=== PATIENT | female | born 1970 | race Caucasian/White ===

== ENCOUNTER → 2019-02-06 | Outpatient (CLI) | payer OTHER, MEDICARE ==
--- NOTE | 2019-02-06 09:36 | XR ---
EXAMINATION TYPE: XR KUB DATE OF EXAM: 02/06/2019 COMPARISON: NONE HISTORY: Ultrasound 02/06/2019 TECHNIQUE: One view abdominal series FINDINGS: The osseous structures are intact. The bowel gas pattern is nonspecific. There is a 3 mm lower pole left renal calculus. Spina bifida occulta noted. Calcifications in the pelvis are too small to charac terize. Sclerosis involving the SI joint greater on the right can be associated with sacroiliitis cor relate clinically. IMPRESSION: 1. Lower pole 3 mm left renal calculus.
--- NOTE | 2019-02-06 11:37 | US ---
EXAMINATION TYPE: US kidneys/renal and bladder DATE OF EXAM: 02/06/2019 COMPARISON: NONE CLINICAL HISTORY: Kidney Stones N20.0. Pt states h/o kidney stones, left calculus surgically removed May 2018 EXAM MEASUREMENTS: Right Kidney: 12.6 x 4.1 x 4.0 cm Left Kidney: 11.4 x 4.9 x 4.8 cm Post Void Residual Volume: 88 mL Right Kidney: Dilated renal pelvis, still visualized on post void Left Kidney: Renal calculus lower pole= 0.8 cm, dilated renal pelvis, still visualized on post void Bladder: wnl Bilateral Jets seen: Yes Normal Post Void Residual: No IMPRESSION: There is mild bilateral hydronephrosis with a 8 mm lower pole left renal calculus
== END | disposition home or self-care (01) ==
LOC: RADUSWWP 08:24
PROVIDERS: ATTEND Urology
DX: N13.2 Hydronephrosis with renal and ureteral calculous obstruction (principal)
CPT/HCPCS: 74018; 76770

== ENCOUNTER → 2019-03-17 | Outpatient (CLI) | payer OTHER, MEDICARE ==
--- NOTE | 2019-03-18 11:08 | MM ---
Reason for exam: screening (asymptomatic). Last mammogram was performed 3 years and 2 months ago. History: Patient is nulliparous. Physical Findings: A clinical breast exam by your physician is recommended on an annual basis and results should be correlated with mammographic findings. MG Screening Mammo w CAD Bilateral CC and MLO view(s) were taken. Prior study comparison: January 10, 2016, mammogram, performed at [facility]. The breast tissue is extremely dense which could obscure a lesion on mammography. Diffuse bilateral punctate calcifications redemonstrated. No significant changes when compared with prior studies. ASSESSMENT: Benign, BI-RAD 2 RECOMMENDATION: Routine screening mammogram of both breasts in 1 year. Patient should continue monthly self breast exams. A negative report should not preclude additional follow up of suspicious palpable abnormalities.
== END | disposition home or self-care (01) ==
LOC: RADMAMWWP 13:44
PROVIDERS: ATTEND Family Medicine
DX: Z12.31 Encounter for screening mammogram for malignant neoplasm of breast (principal)
CPT/HCPCS: 77067

== ENCOUNTER → 2019-03-28 | Outpatient (CLI) | payer OTHER, MEDICARE ==
--- NOTE | 2019-03-28 09:51 | US ---
EXAMINATION TYPE: US pelvic complete DATE OF EXAM: 03/28/2019 COMPARISON: NONE CLINICAL HISTORY: R10.2 PELVIC PAIN. right pelvic pain with physician's palpation; G0; right endometr ioma removed TECHNIQUE: Transabdominal (TA). Transabdominal sonographic images of the pelvis were acquired. Date of LMP: 2 weeks ago EXAM MEASUREMENTS: Uterus: 8.8 x 5.5 x 3.4 cm Endometrial Stripe: 1.0 cm Right Ovary: 3.8 x 2.5 x 2.2 cm Left Ovary: 4.9 x 3.4 x 2.3 cm 1. Uterus: Anteverted 2. Endometrium: thickness is wnl for approximately day 14 LMP 3. Right Ovary: wnl, small follicles 4. Left Ovary: complex lesion with internal echoes that are homogeneous measuring 3.2 x 2.8 x 2.4cm Spectral, color and waveform Doppler imaging shows good arterial and venous flow within the ovaries ; there is no evidence for ovarian torsion. 5. Bilateral Adnexa: wnl 6. Posterior cul-de-sac: wnl IMPRESSION: 3.2 cm left ovarian lesion appears as a hemorrhagic cyst or endometrioma. Follow-up pelvi c ultrasound in 3 months could assess for resolution. If persistent at follow-up exam endometrioma wo uld be favored.
== END ==
LOC: RADUSWWP 06:46
PROVIDERS: ATTEND Obstetrics & Gynecology
DX: N83.8 Other noninflammatory disorders of ovary, fallopian tube and broad ligament (principal)
CPT/HCPCS: 76856

== ENCOUNTER → 2019-05-19 | Outpatient (CLI) | payer OTHER, MEDICARE ==
--- NOTE | 2019-05-19 07:30 | US ---
EXAMINATION TYPE: US pelvic complete DATE OF EXAM: 05/19/2019 COMPARISON: US 03/28/2019 CLINICAL HISTORY: N83.202 Ovarian cyst. Intermittent left pelvic pain x 1 month, follow up ovarian cy st, history of endometriosis - endometrioma removed, 2, 2. TECHNIQUE: Transabdominal sonographic images of the pelvis were acquired. Date of LMP: 2 weeks ago EXAM MEASUREMENTS: Uterus: 9.6 x 3.7 x 5.5 cm Endometrial Stripe: 0.7 cm Right Ovary: 2.9 x 1.4 x 2.0 cm Left Ovary: 3.9 x 2.9 x 3.4 cm 1. Uterus: anteverted 2. Endometrium: appears wnl 3. Right Ovary: wnl 4. Left Ovary: 3.0 x 1.8 x 2.4cm complex lesion with internal echoes. This measured up to 3.2 cm on the prior exam of 03/28/2019 5. Bilateral Adnexa: wnl 6. Posterior cul-de-sac: wnl IMPRESSION: Similar-appearing approximately 3.0 cm complex left ovarian lesion. Given its persistence and comparison to the prior of 03/28/2019 this is favored to represent an endometrioma rather than he morrhagic cyst.
== END | disposition home or self-care (01) ==
LOC: RADUSWWP 06:50
PROVIDERS: ATTEND Obstetrics & Gynecology
DX: N83.292 Other ovarian cyst, left side (principal)
CPT/HCPCS: 76856

== ENCOUNTER → 2019-09-02 | Outpatient (CLI) | payer OTHER, MEDICARE ==
--- NOTE | 2019-09-02 10:23 | XR ---
EXAMINATION TYPE: XR KUB DATE OF EXAM: 09/02/2019 COMPARISON: 02/06/2019 INDICATION: Kidney stones TECHNIQUE: Single view abdomen FINDINGS: There is a normal bowel gas pattern. Psoas margins are normal. No organomegaly is present. There is a 0.6 cm calcification at the inferior pole left kidney. There is a 1.1 cm calcification in the proximal left ureter region adjacent to the left kidney. This is new. There is a 0.3 cm calcification above the iliac spine regions within the pelvis. However, this was pr esent previously suggesting this may be a phlebolith rather than a distal ureteral stone. IMPRESSION: 1. There may be a new 1.1 cm proximal left ureteral stone. 2. Stable inferior pole left renal stone.
== END | disposition home or self-care (01) ==
LOC: RADXRMAIN 09:15
PROVIDERS: ATTEND Urology
DX: N20.0 Calculus of kidney (principal)
CPT/HCPCS: 74018

== ENCOUNTER → 2019-10-22 | Outpatient (CLI) | payer OTHER, MEDICARE ==
--- NOTE | 2019-10-22 13:01 | XR ---
EXAMINATION TYPE: XR abdomen 1V DATE OF EXAM: 10/22/2019 COMPARISON: 09/02/2019 HISTORY: Pain TECHNIQUE: One view abdominal series FINDINGS: Left kidney: There are numerous calcifications involving the lower pole the left kidney. Approximate number is 8. Largest diameter is 3 mm. There is a calcification in the region of the proximal left ureter measuring 3.5 mm. Right kidney: No calcifications. Pelvic calcifications: Stable Changes of sacroiliitis on the right are noted. There is a curvature of the spine with spina bifida o cculta lumbosacral junction. Bowel gas pattern nonspecific. IMPRESSION: 1. Multiple lower pole left renal calculi with suspicion for a proximal ureteral left calculus smalle r in size relative to the previous exam. Currently measures 3.5 mm in diameter and appears to measure approximately 5 mm in diameter. 2. The pelvic calcifications are stable in appearance compared to the prior exam are felt most likely related to vascular phleboliths.
== END | disposition home or self-care (01) ==
LOC: RADXRMAIN 11:36
PROVIDERS: ATTEND Urology
DX: N20.0 Calculus of kidney (principal)
CPT/HCPCS: 74018

== ENCOUNTER → 2019-11-03 | Outpatient (CLI) | payer OTHER, MEDICARE ==
--- NOTE | 2019-11-03 22:17 | CT ---
EXAMINATION TYPE: CT urogram wo/w con DATE OF EXAM: 11/03/2019 HISTORY: difficulty urinating CT DLP: 823.7mGycm Automated Exposure Control for Dose Reduction was Utilized. CONTRAST: CT scan of the abdomen and pelvis is performed without oral and without and with IV Contrast, patient injected with 100 mL of Isovue 300. Urogram protocol with 3-D reconstruction images created on an in dependent workstation and reviewed. COMPARISON: KUB x-ray September 02, 2019. FINDINGS: KUB: Noncontrast images show 2 mm nonobstructing calculus midpole of the right kidney coronal image 7 1 series 9 and additional 2 mm calculus lower Pole level coronal image 61. Left kidney shows approxim ately 8-10 scattered calculi measuring up to 4 mm along with obstructing 6 mm proximal left ureter ca lculus coronal image 56. There is symmetric cortical medullary uptake and excretion from both kidneys with [id number] left-sided hydronephrosis without delayed excretion. No right-sided hydronep hrosis. No intraluminal calculi in the bladder. LUNG BASES: No significant abnormality is appreciated. LIVER/GB: Somewhat contracted gallbladder. PANCREAS: No significant abnormality is seen. SPLEEN: No significant abnormality is seen. ADRENALS: No significant abnormality is seen. KIDNEYS: No significant abnormality is seen. BOWEL: No significant abnormality is seen. UTERUS/ADNEXA: Anteverted uterus projects to right of midline. Probable thin-walled cysts left ovary axial image 63 series 7. LYMPH NODES: No greater than 1cm abdominal or pelvic lymph nodes are appreciated. OSSEOUS STRUCTURES: Slight scoliotic curvature mild to moderate disc space narrowing lower lumbar lev els. Facet arthropathy lower lumbar levels. OTHER: No significant additional abnormality is seen. IMPRESSION: Bilateral nonobstructing nephrolithiasis with obstructing 6 mm calculus proximal left ure ter causing moderate to severe left-sided hydronephrosis but not delayed excretion.
== END | disposition home or self-care (01) ==
LOC: RADCTMAIN 18:14
PROVIDERS: ATTEND Urology
DX: N20.2 Calculus of kidney with calculus of ureter (principal)
CPT/HCPCS: 74178; 74400; Q9967

== ENCOUNTER → 2019-12-16 | Outpatient (CLI) | payer OTHER, MEDICARE ==
--- NOTE | 2019-12-16 12:43 | XR ---
EXAMINATION TYPE: XR abdomen 1V DATE OF EXAM: 12/16/2019 11:12 AM CLINICAL HISTORY: Kidney stone. History of percutaneous nephrostomy, lithotripsy, retrograde cystosc opy. TECHNIQUE: Supine images of the abdomen and pelvis were obtained COMPARISON: CT urogram 11/03/2019. KUB 10/22/2019. FINDINGS: The calcification which was previously seen overlying the level of the L3 left transverse p rocess over the expected proximal ureter is no longer seen on current exam. Calcifications overlying the renal shadows bilaterally, with question bleed decreased on burden of the left lower pole. Nonspe cific bowel gas pattern. No organomegaly. Degenerative sclerotic changes of the right sacroiliac join t. IMPRESSION: The previously demonstrated stone overlying the proximal left ureter is not seen on current exam. The re are bilateral renal calculi, with possibly decreased on burden of the left lower pole.
== END | disposition home or self-care (01) ==
LOC: RADXRMAIN 10:52
PROVIDERS: ATTEND Urology
DX: N20.0 Calculus of kidney (principal)
CPT/HCPCS: 74018

== ENCOUNTER → 2020-01-16 | Outpatient (CLI) | payer OTHER, MEDICARE ==
[2020-01-16 14:04] LABS: Basophils % (A) 0 %; Eosinophils % (A) 1 %; HCT 38.7 % (34.0-46.0); HGB 12.1 gm/dL (11.4-16.0); Lymphocytes # (A) 0.2 k/uL (1.0-4.8); Lymphocytes % (A) 4 %; MCH 28.6 pg (25.0-35.0); MCHC 31.2 g/dL (31.0-37.0); MCV 91.7 fL (80.0-100.0); Mean Platelet Volume 7.2; Monocytes # (A) 0.2 k/uL (0-1.0); Monocytes % (A) 6 %; Neutrophils # (A) 3.4 k/uL (1.3-7.7); Neutrophils % (A) 88 %; Platelet Count 248 k/uL (150-450); RBC 4.22 m/uL (3.80-5.40); RDW 13.2 % (11.5-15.5); WBC 3.8 k/uL (3.8-10.6)
[2020-01-16 19:49] LABS: ALT 23 U/L (8-44); AST 20 U/L (13-35); Albumin/Globulin Ratio 3.14 (1.60-3.17); Alkaline Phosphatase 72 U/L (41-126); Bilirubin, Conjugated <0.20 mg/dL (0.20-0.40); Globulin 1.4 g/dL (1.6-3.3); Total Bilirubin 0.5 mg/dL (0.2-1.2); Total Protein 5.8 g/dL (6.2-8.2)
== END | disposition home or self-care (01) ==
LOC: LABWHC1 12:12
PROVIDERS: ATTEND Psychiatry & Neurology Neurology
DX: G35 Multiple sclerosis (principal)
CPT/HCPCS: 36415; 80076; 85025

== ENCOUNTER → 2020-02-16 | Outpatient (CLI) | payer OTHER, MEDICARE ==
[2020-02-16 17:50] LABS: African American GFR (CKD) 117.9 (60.0-200.0); Calcium 9.6 mg/dL (8.7-10.3); Carbon Dioxide 25.3 mmol/L (21.6-31.8); Non-African American GFR(CKD) 101.7 (60.0-200.0); Phosphorus 3.9 mg/dL (2.4-5.1); Uric Acid 3.4 mg/dL (2.9-7.7)
== END | disposition home or self-care (01) ==
LOC: LABWHC1 08:40
PROVIDERS: ATTEND Urology
DX: N20.0 Calculus of kidney (principal)
CPT/HCPCS: 36415; 82310; 82374; 82435; 82565; 83970; 84100; 84550

== ENCOUNTER → 2020-02-18 | Outpatient (CLI) | payer OTHER, MEDICARE ==
[2020-02-18 20:28] LABS: Calcium 9.4 mg/dL (8.7-10.3); Carbon Dioxide 25.6 mmol/L (21.6-31.8); Phosphorus 3.6 mg/dL (2.4-5.1); Uric Acid 2.6 mg/dL (2.9-7.7)
[2020-02-19 04:39] LABS: Calcium 24 Hour,Urine 252.5 mg/24Hr (100.0-250.0)
[2020-02-19 06:31] LABS: Uric Acid 24 Hour,Urine 0.56 g/24Hr (0.25-0.75)
[2020-02-19 07:03] LABS: Creatinine 24 Hour,Urine 1.09 g/24Hr (0.80-1.80)
== END | disposition home or self-care (01) ==
LOC: LABWHC1 13:17
PROVIDERS: ATTEND Urology
DX: N20.2 Calculus of kidney with calculus of ureter (principal)
CPT/HCPCS: 36415; 81050; 82310; 82340; 82374; 82435; 82565; 82570; 83970; 84100; 84550; 84560

== ENCOUNTER → 2020-03-30 | Outpatient (CLI) | payer OTHER, MEDICARE ==
--- NOTE | 2020-03-30 16:38 | BD ---
EXAMINATION TYPE: Axial Bone Density DATE OF EXAM: 03/30/2020 COMPARISON: NONE CLINICAL HISTORY: Height: 5 FT 2 1/4 IN Weight: 128 FRAX RISK QUESTIONS: Alcohol (3 or more units per day): NO Family History (Parent hip fracture): NO Glucocorticoids (More than 3mos): NO (Ex: prednisone, prednisolone, methylprednisolone, dexamethasone, and hydrocortisone). History of Fracture in Adulthood: NO Secondary Osteoporosis: 1. Type 1 Diabetes: NO 2. Hyperthyroidism: NO 3. Menopause before 45: NO 4. Malnutrition: NO 5. Chronic liver disease: NO Rheumatoid Arthritis: NO Current Tobacco Use: NO RISK FACTORS HISTORY OF: Family History of Osteoporosis: YES Active: YES Diet low in dairy products/other sources of calcium: NO Postmenopausal woman: NO If Premenopausal, do you have irregular periods: NO Take estrogen and/or progesterone medications: NO Lost more than 2 inches in height since high school: NO Frequent falls: YES Poor Health: PT HAS MS MEDICATIONS: Additional Medications: GILENYA, LOSARTIN, HYDROCHLORTHIAZIDE, VITAMINS Additional History: PT HAS MS UNSTEADY USES A CANE EXAM MEASUREMENTS: Bone mineral densitometry was performed using the [employer] System. Bone mineral density as measured about the Lumbar spine is: ----- L1-L4(G/cm2): 1.154 T Score Values are as follows: ----- L2: -0.2 ----- L3: 0.3 ----- L4: -0.7 ----- L1-L4: -0.2 BASELINE Bone mineral density about the R hip (g/cm2): 0.689 Bone mineral density about the L hip (g/cm2): 0.669 T Score values are as follows: -----R Neck: -2.5 -----L Neck: -2.7 -----R Total: -1.1 -----L Total: -1.6 BASELINE IMPRESSION: Osteoporosis (T Score less than -2.5). There is increased fracture risk and therapy is usually indicated based on age. Re-Screen 1-2 years. NOTE: T-SCORE=SD OF THE YOUNG ADULT MEAN.
--- NOTE | 2020-03-31 10:23 | MM ---
Reason for exam: screening (asymptomatic). Last mammogram was performed 1 year ago. History: Patient is nulliparous. Physical Findings: A clinical breast exam by your physician is recommended on an annual basis and results should be correlated with mammographic findings. MG Screening Mammo w CAD Bilateral CC and MLO view(s) were taken. Prior study comparison: March 17, 2019, bilateral MG screening mammo w CAD. January 10, 2016, mammogram, performed at [facility]. The breast tissue is heterogeneously dense. This may lower the sensitivity of mammography. No significant changes when compared with prior studies. ASSESSMENT: Benign, BI-RAD 2 RECOMMENDATION: Routine screening mammogram of both breasts in 1 year.
== END | disposition home or self-care (01) ==
LOC: RADMAMWWP 07:36
PROVIDERS: ATTEND Obstetrics & Gynecology
DX: Z12.31 Encounter for screening mammogram for malignant neoplasm of breast (principal); M81.0 Age-related osteoporosis without current pathological fracture
CPT/HCPCS: 77067; 77080

== ENCOUNTER → 2020-03-30 | Outpatient (CLI) | payer OTHER, MEDICARE ==
--- NOTE | 2020-03-30 12:45 | US ---
EXAMINATION TYPE: US pelvis complete transvag DATE OF EXAM: 03/30/2020 COMPARISON: 05/19/2019 CLINICAL HISTORY: R68.89 RT MASS, ABN PELVIC EXAM. hx right ovarian lesion. TECHNIQUE: Transvaginal (TV) and Transabdominal (TA) . Transabdominal sonographic images of the pel vis were acquired. Transvaginal sonographic images were medically necessary to better assess the fol lowing anatomy: Ovaries, Uterus Date of LMP: 03/16/2020, EXAM MEASUREMENTS: Uterus: 8.7 x 4.8 x 3.5 cm Endometrial Stripe: 1.0 cm Right ovary measures 3.2 x 2.2 x 1.9 cm. Left ovary measures 2.9 x 3.0 x 1.9 cm. 1. Uterus: Anteverted Hypoechoic lesion in left uterus = 1.6 x 1.3 x 1.5 cm 2. Endometrium: wnl 3. Right Ovary: hypoechoic lesion = 1.6 x 1.6 x 1.6 cm 4. Left Ovary: Hypoechoic lesion with echogenic foci within = 3.0 x 2.6 x 1.8 cm. This appears more homogenous than the comparison study. 5. Bilateral Adnexa: wnl 6. Posterior cul-de-sac: no free fluid Cervix= wnl Vaginal cuff- echogenic lesion - 1.0 x 0.9 x 0.7 cm IMPRESSION: 1. Hypoechoic collection right ovary with irregular margins. A collapsing cyst may be present. Follow -up is recommended. 2. Hypoechoic lesion within the left ovary may be a hemorrhagic cyst. Follow-up is recommended. 3. Ill-defined isoechoic lesion within the fundus of uterus. Correlate with the menstrual cycle. Unde rlying thickening or abnormal structure may be present. Correlate with laboratory and beta hCG result s. MRI may be useful for additional evaluation.
== END | disposition home or self-care (01) ==
LOC: RADUSWWP 07:34
PROVIDERS: ATTEND Obstetrics & Gynecology
DX: N83.8 Other noninflammatory disorders of ovary, fallopian tube and broad ligament (principal)
CPT/HCPCS: 76830; 76856

== ENCOUNTER → 2020-05-11 | Outpatient (CLI) | payer OTHER, MEDICARE ==
--- NOTE | 2020-05-11 10:00 | US ---
EXAMINATION TYPE: US pelvic complete DATE OF EXAM: 05/11/2020 COMPARISON: Pelvic ultrasound 03/30/2020 CLINICAL HISTORY: N83.0 Ovarian Cyst. Patient has MS, h/o endometriosis, know ovarian cysts, patient states she has had cysts removed from ovaries before, known fibroid, G0 TECHNIQUE: TA, patient did not want TV today. Transabdominal sonographic images of the pelvis were acquired. Date of LMP: 04/29/2020 EXAM MEASUREMENTS: Uterus: 9.5 x 5.1 x 3.3 cm Endometrial Stripe: 0.9 cm Right Ovary: not seen Left Ovary: 3.3 x 3.5 x 2.4cm 1. Uterus: Anteverted 1.7 x 1.4 x 1.6cm fundal fibroid 2. Endometrium: wnl 3. Right Ovary: not seen, patient could not hold bladder any more, quick adnexal imagining done. 4. Left Ovary: 2.7 x 2.4 x 2.0cm cyst seen 5. Bilateral Adnexa: wnl 6. Posterior cul-de-sac: wnl IMPRESSION: Limitations to the exam. Left ovarian cyst persists.
== END | disposition home or self-care (01) ==
LOC: RADUSWWP 07:00
PROVIDERS: ATTEND Obstetrics & Gynecology
DX: N83.202 Unspecified ovarian cyst, left side (principal)
CPT/HCPCS: 76856

== ENCOUNTER → 2020-07-26 | Outpatient (CLI) | payer OTHER, MEDICARE ==
--- NOTE | 2020-07-26 12:25 | US ---
EXAMINATION TYPE: US renals and bladder DATE OF EXAM: 07/26/2020 COMPARISON: CT 11/03/2019 CLINICAL HISTORY: 49-year-old female N20.0 Kidney Stone. Bilateral renal stones/surgery per patient; patient has MS and has decreased feeling of bladder urgency to void TECHNIQUE: Multiple sonographic images of the kidneys and bladder are obtained. FINDINGS: EXAM MEASUREMENTS: Right Kidney: 12.3 x 5.7 x 4.3 cm Left Kidney: 12.2 x 5.7 x 6.0 cm Post Void Residual Volume: 49.9 mL Right Kidney: small calcifications noted in superior pole measuring up to 4 mm; small hyperechoic cor tical focus noted mid lower/lateral cortex could represent some fat within a cortical defect or other abnormality. No hydronephrosis. Left Kidney: multiple calcifications seen with largest shadowing stone in the lower pole measuring 1. 1 x 0.9 x 0.5cm. No hydronephrosis. Bladder: wnl Bilateral Jets seen: yes Normal Post Void Residual: Increased (normal <50mL) IMPRESSION: 1. Bilateral nephrolithiasis. No hydronephrosis. 2. A 4 mm hyperechoic cortical lesion of the right kidney could represent fat interposed within a kika ctional defect. Small AML or other lesion are not excluded at this time. Six-month follow-up ultrasou nd recommended to reassess. 3. Increased postvoid bladder volume of 50 mL. Findings suggest borderline urinary retention.
== END | disposition home or self-care (01) ==
LOC: RADUSWWP 10:21
PROVIDERS: ATTEND Urology
DX: N20.0 Calculus of kidney (principal)
CPT/HCPCS: 76770

== ENCOUNTER → 2020-09-03 | Outpatient (CLI) | payer OTHER, MEDICARE ==
[2020-09-03 11:30] LABS: Basophils # (A) 0.01 X 10*3/uL (0.00-0.10); Basophils % (A) 0.3 %; Eosinophils # (A) 0.05 X 10*3/uL (0.04-0.35); Eosinophils % (A) 1.7 %; HCT 38.1 % (37.2-46.3); HGB 12.2 g/dL (12.0-15.0); Lymphocytes # (A) 0.12 X 10*3/uL (0.90-5.00); Lymphocytes % (A) 4.1 %; MCH 29.8 pg (27.0-32.0); MCV 92.9 fL (80.0-97.0); Mean Platelet Volume 10.6 fL (9.5-12.2); Monocytes # (A) 0.32 X 10*3/uL (0.20-1.00); Monocytes % (A) 10.9 %; Neutrophils # (A) 2.43 X 10*3/uL (1.80-7.70); Neutrophils % (A) 82.7 %; Platelet Count 250 X 10*3/uL (140-440); RDW 13.9 % (11.5-14.5); WBC 2.94 X 10*3/uL (4.50-10.00)
[2020-09-03 12:20] LABS: ALT 18 U/L (8-44); AST 16 U/L (13-35); Alkaline Phosphatase 76 U/L (41-126); Bilirubin, Conjugated <0.20 mg/dL (0.20-0.40); Carbon Dioxide 30.3 mmol/L (21.6-31.8); Chloride 103 mmol/L (96-109); Globulin 1.8 g/dL (1.6-3.3); Phosphorus 3.7 mg/dL (2.4-5.1); Potassium 4.1 mmol/L (3.5-5.5); Sodium 140 mmol/L (135-145); Total Bilirubin 0.4 mg/dL (0.3-1.2); Total Protein 6.3 g/dL (6.2-8.2)
[2020-09-04 09:22] LABS: T4/T8 Ratio (CD4:CD8) 2.4 (1.0-3.7)
== END | disposition home or self-care (01) ==
LOC: LABWHC1 07:01
PROVIDERS: ATTEND Psychiatry & Neurology Neurology
DX: G35 Multiple sclerosis (principal)
CPT/HCPCS: 36415; 80051; 80076; 82525; 82652; 84100; 84630; 85025; 86355; 86357; 86359; 86360

== ENCOUNTER → 2020-11-16 | Outpatient (CLI) | payer OTHER, MEDICARE ==
--- NOTE | 2020-11-16 13:02 | US ---
EXAMINATION TYPE: US kidneys/renal and bladder DATE OF EXAM: 11/16/2020 COMPARISON: US 07/26/2020 CLINICAL HISTORY: N20.0 Kidney Stone. EXAM MEASUREMENTS: Right Kidney: 12.3 x 4.2 x 4.8 cm Left Kidney: 10.4 x 4.4 x 4.8 cm Right Kidney: Mild amount of hydronephrosis. Echogenic foci mid pole measuring 0.4 cm. Hyperechoic ar ea mid pole measuring 0.5 cm. Junctional defect vs other Left Kidney: Mild amount of hydronephrosis. Two large echogenic foci visualized, first lower pole kartik suring 2.4 cm and second upper pole measuring 1.1 cm Bladder: wnl Bilateral Jets seen: yes The urinary bladder is anechoic. Bilateral ureteral jets are seen. IMPRESSION: 1. Bilateral hydronephrosis. 2. Bilateral nephrolithiasis.
== END | disposition home or self-care (01) ==
LOC: RADUSWWP 11:35
PROVIDERS: ATTEND Urology
DX: N13.2 Hydronephrosis with renal and ureteral calculous obstruction (principal)
CPT/HCPCS: 76770

== ENCOUNTER → 2020-12-03 | Outpatient (CLI) | payer OTHER, MEDICARE ==
--- NOTE | 2020-12-03 23:21 | CT ---
EXAMINATION TYPE: CT urogram wo/w con DATE OF EXAM: 12/03/2020 HISTORY: Lt sided renal stone CT DLP: 734.1mGycm Automated Exposure Control for Dose Reduction was Utilized. CONTRAST: CT scan of the abdomen and pelvis is performed without and with IV Contrast, patient injected with 10 0 mL of Isovue 300. COMPARISON: 11/03/2019 FINDINGS: LUNG BASES: No significant abnormality is appreciated. INCLUDED CARDIAC STRUCTURES: No cardiomegaly or pericardial effusion in the included cardiac structur es. LIVER: No significant abnormality is appreciated. GALLBLADDER : No significant abnormality is appreciated. BILIARY TREE: No abnormal biliary tree dilation. PANCREAS: No significant abnormality is seen. SPLEEN: 9 mm hypoattenuating lesion in the posterior aspect of the inferior spleen previously measure d 6.5 mm, could represent a cyst or hemangioma. ADRENALS: No significant abnormality is seen. KIDNEYS AND URETERS: There are tiny 1 to 2 mm calculi in the right kidney without hydronephrosis. Mul tiple calculi are seen in the left renal collecting system the largest in the lower pole measures up to 1.5 cm. A smaller left upper pole calculus measures 5 mm. There is a low attenuating lesion in the left kidney upper pole which fills with contrast and may represent focal dilatation of the left kidn ey upper pole versus a calyceal diverticulum, lack of delayed imaging differentiation difficult. Ther e is mild dilatation of the left renal collecting system. There is mild thickening of the left pelvic and proximal left ureteral urothelium. This thickening is new compared to prior study. There is no u rothelial thickening on the right. There is an 8 mm low attenuating lesion without enhancement in the left kidney middle pole series 14 image 27, too small to visualize likely on the basis of cyst. Ther e is a 2 mm low attenuating nonenhancing lesion in the right kidney middle pole series 14 image 32 to o small to visualize likely on the basis of cyst. URINARY BLADDER: There is a 1.0 x 0.6 cm filling defect in the posterior urinary bladder wall seen on the delayed contrast images series 14 image 67 and was not seen on prior study. ESOPHAGUS: No significant abnormality is seen. STOMACH: No significant abnormality is seen. SMALL BOWEL: No significant abnormality is seen. LARGE BOWEL: There is an extremely hyperattenuating lesion in the cecal valve which was not seen on p rior study this could represent a foreign body such as an ingested pill. There is no bowel obstructio n or diverticulosis. APPENDIX: Not definitely identified. No secondary evidence of acute appendicitis. HERNIAS: None UTERUS/ADNEXA: There is a small amount of fluid in the endometrial cavity. There is slight irregulari ty in the anterior uterine fundal wall which may represent a leiomyomata. There is slight thickening to the superior aspect of the cervix which is not well-defined. There is a calcified lesion in the po sterior vaginal wall which was seen on prior study, likely benign. There is a 3.5 cm left ovarian cys t. PERITONEUM/MESENTRY: No pneumoperitoneum or ascites. LYMPH NODES: No enlarged retroperitoneal or pelvic lymph nodes are appreciated. MAJOR VASCULAR STRUCTURES: Nonaneurysmal aorta. Inferior vena cava are normal in course and caliber. Patent major proximal aortic branches. OSSEOUS STRUCTURES: Mild scoliosis. Moderate narrowing at L5-S1 with disc herniation at L4-5 and L5-S 1. Mild facet joint arthropathy in the lower lumbar spine. Bilateral sacroiliac joint sclerotic spivey es right greater than left. Mild endplate degenerative changes in the 11 vertebral body. Ventral bony spur at T11-12 and L1-2. No significant soft tissue abnormalities. IMPRESSION: 1. LEFT RENAL CALCULI MEASURING UP TO 1.5 CM INCREASED IN SIZE AND NUMBER COMPARED TO PRIOR STUDY WIT H MILD LEFT HYDRONEPHROSIS. TINY RIGHT OBSTRUCTING NEPHROLITHIASIS. 2. THICKENING OF THE LEFT RENAL PELVIS AND PROXIMAL UROTHELIUM COULD REPRESENT ACUTE OR CHRONIC INFEC TION OR INFLAMMATION SEQUEL, MALIGNANCY CANNOT BE ENTIRELY EXCLUDED. 3. FILLING DEFECT IN THE POSTERIOR URINARY BLADDER WALL, CORRELATION WITH DIRECT VISUALIZATION SHOULD BE CONSIDERED TO RULE OUT UNDERLYING MALIGNANCY. 4. SMALL AMOUNT OF FLUID IN THE ENDOMETRIAL CAVITY, SMALL LEIOMYOMATA SUSPECTED, MILD THICKENING TO T HE SUPERIOR POSTERIOR ASPECT OF THE CERVIX, 3.5 CM LEFT OVARIAN CYST, FURTHER EVALUATION WITH PELVIC ULTRASOUND RECOMMENDED
== END | disposition home or self-care (01) ==
LOC: RADCTMAIN 10:23
PROVIDERS: ATTEND Urology
DX: N20.0 Calculus of kidney (principal)
CPT/HCPCS: 74178; 74400; Q9967

== ENCOUNTER → 2021-04-07 | Outpatient (CLI) | payer OTHER, MEDICARE | END | disposition home or self-care (01) | LOC: LABWHC1 07:20 | PROVIDERS: ATTEND Urology | DX: N20.0 Calculus of kidney (principal) | CPT/HCPCS: 87086 ==

== ENCOUNTER → 2021-04-14 | Outpatient (CLI) | payer OTHER, MEDICARE | END | disposition home or self-care (01) | LOC: LABWHC1 07:01 | PROVIDERS: ATTEND Urology | DX: Z01.812 Encounter for preprocedural laboratory examination (principal); Z20.822 Contact with and (suspected) exposure to COVID-19 | CPT/HCPCS: U0003; C9803; U0005 ==

== ENCOUNTER → 2021-05-23 | Outpatient (CLI) | payer OTHER, MEDICARE | END | disposition home or self-care (01) | LOC: LABWHC1 07:10 | PROVIDERS: ATTEND Urology | DX: Z20.822 Contact with and (suspected) exposure to COVID-19 (principal) | CPT/HCPCS: U0003; C9803 ==

== ENCOUNTER → 2021-06-27 | Outpatient (CLI) | payer OTHER, MEDICARE ==
--- NOTE | 2021-06-27 10:14 | US ---
EXAMINATION TYPE: US kidneys/renal and bladder DATE OF EXAM: 06/27/2021 COMPARISON: NONE CLINICAL HISTORY: N20.0 Kidneystone. Hx of stones EXAM MEASUREMENTS: Right Kidney: 10.9 x 4.0 x 4.8 cm Left Kidney: 9.9 x 3.9 x 4.6 cm Right Kidney: No hydronephrosis or masses see dilated renal pelvis. Left Kidney: No hydronephrosis or masses seen Bladder: wnl Bilateral Jets seen: Yes Cortical medullary differentiation is maintained bilaterally. No nephrolithiasis is seen. No masses are identified. The urinary bladder is anechoic. Bilateral ureteral jets are seen. IMPRESSION: Probable extrarenal pelvis present bilaterally, some interval improvement compared to prior exam
== END | disposition home or self-care (01) ==
LOC: RADUSWWP 09:26
PROVIDERS: ATTEND Urology
DX: N20.0 Calculus of kidney (principal)
CPT/HCPCS: 76770

== ENCOUNTER → 2021-08-29 | Outpatient (CLI) | payer OTHER, MEDICARE ==
[2021-08-29 14:44] LABS: Basophils # (A) 0.01 X 10*3/uL (0.00-0.10); Basophils % (A) 0.3 %; Eosinophils # (A) 0.05 X 10*3/uL (0.04-0.35); Eosinophils % (A) 1.4 %; HCT 38.7 % (37.2-46.3); HGB 12.1 g/dL (12.0-15.0); Immature Grans, Automated 0.3 %; Lymphocytes # (A) 0.14 X 10*3/uL (0.90-5.00); Lymphocytes % (A) 3.8 %; MCH 29.1 pg (27.0-32.0); MCHC 31.3 g/dL (32.0-37.0); Mean Platelet Volume 10.7 fL (9.5-12.2); Monocytes # (A) 0.32 X 10*3/uL (0.20-1.00); Monocytes % (A) 8.8 %; NRBC Per 100 WBC 0 /100 WBCS (0.0-0.0); Neutrophils # (A) 3.11 X 10*3/uL (1.80-7.70); Neutrophils % (A) 85.4 %; Platelet Count 258 X 10*3/uL (140-440); RBC 4.16 X 10*6/uL (4.10-5.20); RDW 14.3 % (11.5-14.5); WBC 3.64 X 10*3/uL (4.50-10.00)
[2021-08-29 14:51] LABS: African American GFR (CKD) 123.2 (60.0-200.0); Albumin 4.4 g/dL (3.8-4.9); Anion Gap 9.8 mmol/L (10.00-18.00); BUN/Creat Ratio 21.33 Ratio (12.00-20.00); Blood Urea Nitrogen 12.8 mg/dL (9.0-27.0); Calcium 9.2 mg/dL (8.7-10.3); Carbon Dioxide 26.2 mmol/L (20.0-27.5); Globulin 2.2 g/dL (1.6-3.3); Non-African American GFR(CKD) 106.3 (60.0-200.0); Total Bilirubin 0.3 mg/dL (0.30-1.20); Total Protein 6.6 g/dL (6.2-8.2)
== END | disposition home or self-care (01) ==
LOC: LABWHC1 08:20
PROVIDERS: ATTEND Psychiatry & Neurology Neurology
DX: G35 Multiple sclerosis (principal); M81.0 Age-related osteoporosis without current pathological fracture
CPT/HCPCS: 36415; 80053; 82652; 85025

== ENCOUNTER → 2021-09-30 | Outpatient (CLI) | payer OTHER, MEDICARE ==
--- NOTE | 2021-10-03 18:53 | MM ---
Reason for Exam: Screening (asymptomatic). Last mammogram was performed 1 year(s) and 6 month(s) ago. Patient History: Menarche at age 13. Patient has no children. Risk Values: Ev 5 year model risk: 1.1%. NCI Lifetime model risk: 9.9%. Prior Study Comparison: 01/10/2016 Screening Mammogram, [facility]. 03/17/2019 Bilateral Screening Mammogram, [facility]. 03/30/2020 Bilateral Screening Mammogram, [facility]. Tissue Density: The breast tissue is heterogeneously dense. This may lower the sensitivity of mammography. Findings: Analyzed By CAD. Diffuse and regional benign bilateral round and punctate microcalcifications are redemonstrated. No significant change from prior exams. Overall Assessment: Benign, BI-RAD 2 Management: Screening Mammogram of both breasts in 1 year. 1. A clinical breast exam by your physician is recommended on an annual basis and results should be correlated with mammographic findings. 2. The patient should continue monthly self breast exams. 3. This exam should not preclude additional follow-up of suspicious palpable abnormalities. Electronically signed and approved by: Harjeet Del Castillo M.D. Radiologist
== END | disposition home or self-care (01) ==
LOC: RADMAMWWP 08:56
PROVIDERS: ATTEND Obstetrics & Gynecology
DX: Z12.31 Encounter for screening mammogram for malignant neoplasm of breast (principal)
CPT/HCPCS: 77067

== ENCOUNTER → 2022-07-05 | Outpatient (CLI) | payer BC, MEDICARE ==
[2022-07-05 23:15] LABS: Erythrocyte Sedimentation Rate 10 mm/Hr (0-30)
[2022-07-05 23:20] LABS: Basophils # (A) 0.02 X 10*3/uL (0.00-0.10); Basophils % (A) 0.5 %; Eosinophils # (A) 0.03 X 10*3/uL (0.04-0.35); Eosinophils % (A) 0.8 %; HCT 39.2 % (37.2-46.3); HGB 12.4 g/dL (12.0-15.0); Immature Grans, Automated 0.3 %; Lymphocytes % (A) 5.2 %; MCH 29.7 pg (27.0-32.0); MCHC 31.6 g/dL (32.0-37.0); Mean Platelet Volume 10.8 fL (9.5-12.2); Monocytes # (A) 0.42 X 10*3/uL (0.20-1.00); Monocytes % (A) 10.8 %; NRBC Per 100 WBC 0 /100 WBCS (0.0-0.0); Neutrophils % (A) 82.4 %; Platelet Count 285 X 10*3/uL (140-440); RBC 4.17 X 10*6/uL (4.10-5.20); RDW 13.6 % (11.5-14.5); WBC 3.88 X 10*3/uL (4.50-10.00)
[2022-07-06 01:14] LABS: Appearance,Urine Cloudy (Clear); Bilirubin,Urine Negative (Negative); Blood,Urine Negative (Negative); Color,Urine Yellow (Yellow); Ketones,Urine Negative (Negative); Nitrite,Urine Positive (Negative); PH, Urine 7.5 (5.0-8.0); Specific Gravity,Urine 1.009 (1.001-1.030); Urobilinogen,Urine 0.2 (0.2,1.0)
[2022-07-06 01:26] LABS: Bacteria,Urine 4+ /HPF (None Seen)
[2022-07-06 01:38] LABS: T4, Free (Free Thyroxine) 1.01 ng/dL (0.800-1.800)
== END | disposition home or self-care (01) ==
LOC: LABWHC1 14:09
PROVIDERS: ATTEND Psychiatry & Neurology Neurology
DX: G35 Multiple sclerosis (principal); R32 Unspecified urinary incontinence; Z79.899 Other long term (current) drug therapy
CPT/HCPCS: 36415; 81001; 82306; 82607; 84207; 84439; 84443; 85025; 85652; 87077; 87086; 87186

== ENCOUNTER → 2022-07-27 | Outpatient (CLI) | payer BC, MEDICARE ==
--- NOTE | 2022-08-03 20:04 | MR ---
EXAMINATION TYPE: MR brain/cspine wo/w DATE OF EXAM: 07/27/2022 1:00 PM CLINICAL INDICATION:Female, 51 years old with history of G35 MULTIPLE SCLEROSIS MS. COMPARISON: Outside imaging MRI 05/03/2016 TECHNIQUE: Multiplanar, multisequence images of the brain and brainstem is performed. Multi planar, multi sequence imaging was performed utilizing: T1-weighted, T2-weighted, and turbo inv ersion recovery imaging of the cervical spine. MR IV Contrast: 6 cc Gadavist FINDINGS: BRAIN: High T2 signal seen within the periventricular and deep white matter is is redemonstrated. Some of th david are perpendicularly orientation to the ventricles. Overall findings have progressed from 2017 wit h some white matter changes which have increased in size compared to prior. Examples include left pos terior frontal lobe plaque measuring 10 mm, previously 8 mm, right frontal lobe plaque measuring 10 m m previously 8 mm and right frontal lobe medially measuring 7 mm, previously 5 mm. Other plaques are stable including a 8 mm plaque in the right posterior frontal lobe near the skull vertex. No abnormal postcontrast enhancement or diffusion restriction identified. Focus of susceptibility weighted blooming artifact in the right wrist are frontal parietal region. There is no extra-axial fluid collection or significant white matter signal abnormality. The ventric ular system and cisternal spaces are normal in size and appearance. The brain volume is age appropri ate. Midline structures demonstrate normal morphology. The craniocervical junction appears within no rmal limits. The dural venous sinuses appear patent. The bone marrow signal is within normal limits. Paranasal sinuses and mastoid air cells: Mild scattered paranasal sinus disease. Visualized orbits: Orbital contents are intact. C-SPINE: Alignment: The cervical vertebral bodies have preserved heights. Alignment is within normal limits gi wiliam patient positioning. Bones: Bone signal is within normal limits. Cord: The spinal cord is unremarkable with regards to their signal intensity and morphology. Discs: Intervertebral disc signal is maintained. C2-C3: No significant disc pathology. The spinal canal is patent. No neural foraminal stenosis. C3-C4: No significant disc pathology. The spinal canal is patent. No neural foraminal stenosis. C4-C5: No significant disc pathology. The spinal canal is patent. No neural foraminal stenosis. C5-C6: No significant disc pathology. The spinal canal is patent. No neural foraminal stenosis. C6-C7: No significant disc pathology. The spinal canal is patent. No neural foraminal stenosis. C7-T1: No significant disc pathology. The spinal canal is patent. No neural foraminal stenosis. Other: None. IMPRESSION: 1. Mild progression of white matter changes compatible with multiple sclerosis when compared to 2017 . No evidence for active demyelination involving the brain or cervical spine. 2. No evidence of intracranial mass, acute/subacute infarct, or abnormal enhancement. 3. No evidence for disc herniation or significant spinal canal stenosis.
== END | disposition home or self-care (01) ==
LOC: RADMRIMAIN 11:23
PROVIDERS: ATTEND Psychiatry & Neurology Neurology
DX: G35 Multiple sclerosis (principal)
CPT/HCPCS: 70553; 72156; A9585

== ENCOUNTER → 2022-08-03 | Outpatient (CLI) | payer BC, MEDICARE ==
--- NOTE | 2022-08-03 16:05 | MR ---
EXAMINATION TYPE: MR thoracic spine wo/w con DATE OF EXAM: 08/03/2022 COMPARISON: None HISTORY: Multiple Sclerosis CONTRAST: Performed utilizing 6ml mL intravenous Gadavist gadolinium contrast. TECHNIQUE: Multiplanar, multiecho imaging on a 3.0 Tanisha magnet is performed through the thoracic spi ne. There is increased signal on T2-weighted sequences within the distal thoracic spine T11-L1. Syrinx sh ould be considered. No cord expansion is evident. No obvious mass is identified. At the T11 level there is a right paracentral disc bulge with moderate anterior thecal sac compressio n. No AP spinal canal stenosis is present. Vertebral body alignment is normal. Vertebral body heights are preserved. Disc heights are preserved. Disc hydration levels are preserved. No spinal canal stenosis is evident. IMPRESSIONS: 1. Distal spinal cord syrinx. Recommend contrast CT for additional evaluation. 2. No suspicious multiple sclerosis plaques.
== END | disposition home or self-care (01) ==
LOC: RADMRIMAIN 11:19
PROVIDERS: ATTEND Psychiatry & Neurology Neurology
DX: G35 Multiple sclerosis (principal); G95.0 Syringomyelia and syringobulbia
CPT/HCPCS: 72157; A9585

== ENCOUNTER → 2022-08-14 | Outpatient (CLI) | payer BC, MEDICARE ==
--- NOTE | 2022-08-14 09:15 | CT ---
EXAMINATION TYPE: CT thoracic spine wo/w con CT DLP: 994.3 mGycm, Automated exposure control for dose reduction was used. DATE OF EXAM: 08/14/2022 8:35 AM COMPARISON: 08/03/2022 MRI CLINICAL INDICATION:Female, 51 years old with history of R93.7 ABN MRI, R93.7 MS, Abn MRI TECHNIQUE: Axial images of the thoracic spine were obtained without contrast. Coronal and sagittal re formats were performed. 3-D reformats of the bones were created on a separate workstation and submitt ed for review. FINDINGS: Scattered multilevel disc degeneration changes are seen throughout the spine with osteophyte formatio n with some scattered areas of endplate sclerosis and early Schmorl's node formation. Disc heights an d disc spaces are grossly maintained is scattered facet joint arthropathy. The neural foramen and spi nal canal patent. Spinal cord syrinx seen on prior MRI is not well appreciated on this CT examination due to CT technique. Partially visualized left nonobstructing renal calculi. IMPRESSION: Distal spinal cord syrinx should be evaluated with MRI with IV contrast to rule out underlying lesion .
== END | disposition home or self-care (01) ==
LOC: RADCTMAIN 07:57
PROVIDERS: ATTEND Psychiatry & Neurology Neurology
DX: G35 Multiple sclerosis (principal); R93.7 Abnormal findings on diagnostic imaging of other parts of musculoskeletal system; G95.0 Syringomyelia and syringobulbia
CPT/HCPCS: 72130; Q9967

== ENCOUNTER → 2022-10-05 | Outpatient (CLI) | payer BC, MEDICARE ==
--- NOTE | 2022-10-05 10:22 | BD ---
EXAMINATION TYPE: Axial Bone Density DATE OF EXAM: 10/05/2022 CLINICAL HISTORY: 51 year old Female. ICD-10 CODE: M81.0AGE-RELATED OSTEOPOROSIS W/O CURRENT Height: 62.5 Weight: 134.9 FRAX RISK QUESTIONS: Alcohol (3 or more units per day): no Family History (Parent hip fracture): no Glucocorticoids (More than 3mos): no (Ex: prednisone, prednisolone, methylprednisolone, dexamethasone, and hydrocortisone). History of Fracture in Adulthood: no Secondary Osteoporosis: 1. Type 1 Diabetes: no 2. Hyperthyroidism: no 3. Menopause before 45: no 4. Malnutrition: no 5. Chronic liver disease: no Rheumatoid Arthritis: no Current Tobacco Use: no RISK FACTORS HISTORY OF: Surgery to Spine/Hip(right/left)/Wrist (right/left): no Family History of Osteoporosis: yes Diet low in dairy products/other sources of calcium: no Postmenopausal woman: no If Premenopausal, do you have irregular periods: yes Lost more than 2 inches in height since high school: no Frequent falls: yes MEDICATIONS: Additional History: use of steroids in the past EXAM MEASUREMENTS: Bone mineral densitometry was performed using the [employer] System. Bone mineral density as measured about the Lumbar spine is: ----- L1-L4(G/cm2): 1.152 T Score Values are as follows: ----- L1: -0.3 ----- L2: -0.5 ----- L3: 0.2 ----- L4: -0.6 ----- L1-L4: -0.2 Z Score Values are as follows: ----- L1: 0.4 ----- L2: 0.2 ----- L3: 0.9 ----- L4: 0.1 ----- L1-L4: 0.4 Bone mineral density has: decreased -0.2 % since study of: 03.30.2020 Bone mineral density about the R hip (g/cm2): 0.851 Bone mineral density about the L hip (g/cm2): 0.821 T Score values are as follows: -----R Neck: -2.4 -----L Neck: -2.3 -----R Total: -1.2 -----L Total: -1.5 Z Score values are as follows: -----R Neck: -1.5 -----L Neck: -1.3 -----R Total: -0.6 -----L Total: -0.9 Bone mineral density has: decreased -0.8 % since study of: 03.30.2020 FRAX%s: The graph provided illustrates a 7.5% chance for a major osteoporotic fx and a 1.5% chance fo r the hips probability for fx in 10 years time. IMPRESSION: Osteopenia (T Score between -2.5 and -1). There is slightly increased risk of fracture and the patient may be considered for treatment. Re-Screen 2-5 years. NOTE: T-SCORE=SD OF THE YOUNG ADULT MEAN.
--- NOTE | 2022-10-06 17:34 | MM ---
Reason for Exam: Screening (asymptomatic). Last screening mammogram was performed 12 month(s) ago. Patient History: Menarche at age 13. Patient has no children. Patient used Hormonal Contraceptives for 2 years. Last menstrual period: 07/20/2022 Risk Values: Ev 5 year model risk: 1.1%. NCI Lifetime model risk: 9.7%. Prior Study Comparison: 03/17/2019 Bilateral Screening Mammogram, [facility]. 03/30/2020 Bilateral Screening Mammogram, [facility]. 09/30/2021 Bilateral MG screening mammo w CAD, [facility]. Tissue Density: The breast tissue is extremely dense which could obscure a lesion on mammography. Findings: Analyzed By CAD. Pattern appears symmetrical and stable. Benign scattered calcifications are present bilaterally. No significant interval change is evident. No suspicious groups of microcalcifications, spiculated or lobular masses, architectural distortion or other secondary signs of malignancy are mammographically apparent. Overall Assessment: Benign, BI-RAD 2 Management: Screening Mammogram of both breasts in 1 year. A negative mammogram report should not preclude additional follow up of suspicious palpable abnormalities. Patient should continue monthly self breast exam. A clinical breast exam by your physician is recommended on an annual basis and results should be correlated with mammographic findings. Electronically signed and approved by: Pollo Gann D.O. Radiologis
== END | disposition home or self-care (01) ==
LOC: RADMAMWWP 07:00
PROVIDERS: ATTEND Obstetrics & Gynecology
DX: Z12.31 Encounter for screening mammogram for malignant neoplasm of breast (principal); M81.0 Age-related osteoporosis without current pathological fracture; M85.89 Other specified disorders of bone density and structure, multiple sites
CPT/HCPCS: 77063; 77067; 77080

== ENCOUNTER 2024-08-10 18:57 | Inpatient (IN) | payer BC, MEDICARE ==
--- NOTE | 2024-08-10 19:47 | ED ---
Neuro HPI <Ruthie Patel - Last Filed: 08/13/24 09:31> - General Source: patient Mode of arrival: ambulatory Limitations: no limitations - History of Present Illness Is the patient presenting with stroke symptoms?: Yes Last Known Well Date: 07/27/24 Last Known Well Time: 12:00 -: week(s) Location: left face, left arm, left leg History of same: Yes Place: home Severity: moderate Quality: weak, numb, tingling Improves With: none Worsens With: none On Anticoagulants: No Context: gradual onset Associated Symptoms: denies other symptoms Treatments Prior to Arrival: other (antibiotics) <You Mcae - Last Filed: 09/01/24 17:19> - General Chief Complaint: Neuro Symptoms/Deficit Stated Complaint: Weakness,Numbness,Double vision Time Seen by Provider: 08/10/24 19:07 - History of Present Illness Initial Comments: This patient is a 53-year-old woman with history of MS who states that it feels to her like she is having a recurrence of symptoms. The patient states that between 2 and 3 weeks ago she noticed that she was having some numbness and weakness of the face which has also started to involve the left arm and left leg. She states it was similar to previous MS flare but that was probably over 15 years ago. She saw Dr. Cheema her neurologist who felt she had urinary tract infection and was treating her for that with Cipro. The patient states that the symptoms have not improved and in fact may be getting worse. She has not noted other symptoms of infection, no fever or chills. No congestion, sore throat, cough. No vomiting or diarrhea. No rash. (You Mace) - Related Data Home Medications: Home Medications Medication Instructions Recorded Confirmed Baclofen 10 mg PO HS 08/11/24 08/11/24 Baclofen [Lioresal] 5 mg PO BID-W/MEALS 08/11/24 08/11/24 Fingolimod HCl [Gilenya] 0.5 mg PO Q3D 08/11/24 08/11/24 Losartan Potassium [Cozaar] 100 mg PO HS 08/11/24 08/11/24 Previous Rx's Medication Instructions Recorded Atorvastatin [Lipitor] 80 mg PO HS #30 tab 08/14/24 amLODIPine [Norvasc] 5 mg PO DAILY #30 tab 08/14/24 Allergies/Adverse Reactions: Allergies Allergy/AdvReac Type Severity Reaction Status Date / Time naproxen [From Aleve] Allergy Rash/Hives Verified 08/11/24 08:28 tetracycline Allergy Rash/Hives Verified 08/11/24 08:28 Review of Systems ROS Other: All systems not noted in ROS Statement are negative. <Ruthie Patel - Last Filed: 08/13/24 09:31> ROS Other: All systems not noted in ROS Statement are negative. Constitutional: Denies: fever, chills Eyes: Denies: vision change ENT: Denies: throat pain, hearing loss, congestion Respiratory: Denies: cough, dyspnea Cardiovascular: Denies: chest pain, palpitations, syncope Gastrointestinal: Denies: abdominal pain, nausea, vomiting, diarrhea Genitourinary: Denies: dysuria, frequency, hematuria Musculoskeletal: Denies: back pain Skin: Denies: rash Neurological: Reports: weakness, numbness, paresthesias. Denies: headache <GuevaraYou de leon - Last Filed: 09/01/24 17:19> ROS Statement: Those systems with pertinent positive or pertinent negative responses have been documented in the HPI. General Exam Limitations: no limitations General appearance: alert, in no apparent distress Head exam: Present: atraumatic, normocephalic Eye exam: Present: normal appearance, PERRL, EOMI. Absent: scleral icterus, conjunctival injection ENT exam: Present: normal oropharynx Neck exam: Present: normal inspection, full ROM Respiratory exam: Present: normal lung sounds bilaterally. Absent: respiratory distress, wheezes, rales, rhonchi, stridor, accessory muscle use Cardiovascular Exam: Present: regular rate, normal rhythm, normal heart sounds. Absent: systolic murmur, diastolic murmur, rubs, gallop GI/Abdominal exam: Present: soft. Absent: distended, tenderness, guarding, rebound, rigid, mass Extremities exam: Present: normal inspection, normal capillary refill. Absent: pedal edema, calf tenderness Back exam: Present: normal inspection Neurological exam: Present: alert, oriented X3, motor sensory deficit Expanded Neurological exam: Present: protecting the airway. Absent: memory loss-remote event, memory loss-recent event, receptive aphasia, expressive aphasia Speech: Present: fluid speech. Absent: receptive aphasia, expressive aphasia Cranial nerves: EOM's Intact: Normal, Gag Reflex: Normal Motor strength exam: RUE: 5, LUE: 4, RLE: 5, LLE: 4 Eye Response: (4) open spontaneously Motor Response: (6) obeys commands Verbal Response: (5) oriented Skin exam: Present: warm, dry, intact, normal color. Absent: rash <You Mace - Last Filed: 09/01/24 17:19> Stroke MDM - Lab Data Result diagrams: 08/10/24 21:05 08/13/24 05:28 <Ruthie - Last Filed: 08/13/24 09:31> - Lab Data Result diagrams: 08/10/24 21:05 08/13/24 05:28 - EKG Data -: EKG Interpreted by [facility] EKG shows normal: sinus rhythm (With trigeminy pattern), axis (Normal), intervals (Normal), QRS complexes (Normal), ST-T waves (Normal) Rate: normal (Rate 88) <You Mace - Last Filed: 09/01/24 17:19> - Lab Data Lab Results 08/10/24 08/10/24 08/10/24 Range/Units 21:05 21:05 21:05 WBC 3.44 L (4.50-10.00) 10*3/uL RBC 3.84 L (4.10-5.20) 10*6/uL Hgb 12.2 (12.0-15.0) g/dL Hct 35.7 L (37.2-46.3) % MCV 93.0 (80.0-97.0) fL MCH 31.8 (27.0-32.0) pg MCHC 34.2 (32.0-37.0) g/dL Plt Count 217 (140-440) 10*3/uL MPV 10.2 (9.5-12.2) fL Immature Gran % (Auto) 0.3 % Neutrophils % 83.9 % Lymphocytes % 4.4 % Monocytes % 10.2 % Eosinophils % 0.9 % Basophils % 0.3 % Immature Gran # 0.01 (0.00-0.04) 10*3/uL Neutrophils # 2.89 (1.80-7.70) 10*3/uL Lymphocytes # 0.15 L (0.90-5.00) 10*3/uL Monocytes # 0.35 (0.20-1.00) 10*3/uL Eosinophils # 0.03 L (0.04-0.35) 10*3/uL Basophils # 0.01 (0.00-0.10) 10*3/uL PT 9.7 L (10.0-12.5) sec INR 0.9 (<1.2) APTT 22.6 (22.0-30.0) sec Sodium 136 L (137-145) mmol/L Potassium 3.7 (3.5-5.1) mmol/L Chloride 103 (98-107) mmol/L Carbon Dioxide 29 (22-30) mmol/L Anion Gap 4 mmol/L BUN 15 (7-17) mg/dL Creatinine 0.55 (0.52-1.04) mg/dL Est GFR (CKD-EPI)AfAm >90 (>60 ml/min/1.73 sqM) Est GFR (CKD-EPI)NonAf >90 (>60 ml/min/1.73 sqM) Glucose 96 (74-99) mg/dL Calcium 9.4 (8.4-10.2) mg/dL Total Bilirubin 0.4 (0.2-1.3) mg/dL AST 18 (14-36) U/L ALT 23 (4-34) U/L Alkaline Phosphatase 78 (38-126) U/L Creatine Kinase 27 L (30-135) U/L Troponin I (0.000-0.034) ng/mL Total Protein 5.9 L (6.3-8.2) g/dL Albumin 3.9 (3.5-5.0) g/dL 08/10/24 Range/Units 21:05 WBC (4.50-10.00) 10*3/uL RBC (4.10-5.20) 10*6/uL Hgb (12.0-15.0) g/dL Hct (37.2-46.3) % MCV (80.0-97.0) fL MCH (27.0-32.0) pg MCHC (32.0-37.0) g/dL Plt Count (140-440) 10*3/uL MPV (9.5-12.2) fL Immature Gran % (Auto) % Neutrophils % % Lymphocytes % % Monocytes % % Eosinophils % % Basophils % % Immature Gran # (0.00-0.04) 10*3/uL Neutrophils # (1.80-7.70) 10*3/uL Lymphocytes # (0.90-5.00) 10*3/uL Monocytes # (0.20-1.00) 10*3/uL Eosinophils # (0.04-0.35) 10*3/uL Basophils # (0.00-0.10) 10*3/uL PT (10.0-12.5) sec INR (<1.2) APTT (22.0-30.0) sec Sodium (137-145) mmol/L Potassium (3.5-5.1) mmol/L Chloride (98-107) mmol/L Carbon Dioxide (22-30) mmol/L Anion Gap mmol/L BUN (7-17) mg/dL Creatinine (0.52-1.04) mg/dL Est GFR (CKD-EPI)AfAm (>60 ml/min/1.73 sqM) Est GFR (CKD-EPI)NonAf (>60 ml/min/1.73 sqM) Glucose (74-99) mg/dL Calcium (8.4-10.2) mg/dL Total Bilirubin (0.2-1.3) mg/dL AST (14-36) U/L ALT (4-34) U/L Alkaline Phosphatase (38-126) U/L Creatine Kinase (30-135) U/L Troponin I <0.012 (0.000-0.034) ng/mL Total Protein (6.3-8.2) g/dL Albumin (3.5-5.0) g/dL - Medical Decision Making Was patient admitted / discharged? Hospital course, mention meds given and route, prescriptions, significant lab abnormalities, going to OR and other pertinent info. @ -Admission-patient was signed out to myself pending completion of imaging. Briefly patient is a pleasant 53-year-old female has a history of multiple sclerosis presenting today for 2 to 3 weeks of ongoing worsening left upper and left lower extremity weakness and numbness. Patient signed out to myself pending CT brain, CTA. CT was significant for "an age-indeterminate infarct in the left basal ganglia and patchy periventricular and subcortical white matter small ischemic disease", CTA was significant for no dissection or high-grade stenosis or aneurysm though noted a "somewhat beaded appearance of the bilateral cervical carotid arteries left greater than right which is nonspecific but could be associated with fibromuscular dysplasia". Updated patient to find something concerning for possible subacute CVA. Patient is outside the window for intervention or tenecteplase given symptoms ongoing for the last 2 to 3 weeks. I did attempt to contact stroke network for any fur ther recommendations given questionable subacute nature of possible stroke however did not receive a response. She will be given full dose aspirin and admitted for further evaluation and neurology consultation. Case discussed with Dr. Gómez who kindly accepted patient for admission. Drug Therapy requiring intensive monitoring for toxicity (Heparin, Nitro, Insulin, Cardizem)? @ -No Were any procedures done? @ -No Diagnosis/symptom? @Left basal ganglia infarct Acute, or Chronic, or Acute on Chronic? @Subacute/chronic Uncomplicated (without systemic symptoms) or Complicated (systemic symptoms)? @Complicated Side effects of treatment? @ -No Exacerbation, Progression, or Severe Exacerbation? @ -No Poses a threat to life or bodily function? How? (Chest pain, [place], [place], pneumonia, PE, COPD, DKA, ARF, appy, cholecystitis, CVA, Diverticulitis, Homicidal, Suicidal, threat to staff... and all critical care pts) @Yes potentially, if left untreated/unidentified could eventually progress to major or massive stroke (Ruthie Patel) Was pt. sent in by a medical professional or institution (, PA, ENDOSCOPY SPECIALTY TECHNICIAN, urgent care, hospital, or custodial...) When possible be specific @ -[No] Did you speak to anyone other than the patient for history (EMS, parent, family, police, friend...)? What history was obtained from this source @ -[No] Did you review nursing and triage notes (agree or disagree)? Why? @ -[I reviewed and agree with nursing and triage notes] Were old charts reviewed (outside hosp., previous admission, EMS record, old EKG, old radiological studies, urgent care reports/EKG's, custodial records)? Report findings @ -[No old charts were reviewed] Differential Diagnosis (chest pain, altered mental status, abdominal pain women, abdominal pain men, vaginal bleeding, weakness, fever, dyspnea, syncope, headache, dizziness, GI bleed, back pain, seizure, CVA, palpatations, mental health, musculoskeletal)? @ -Differential CVA Ischemic stroke, hemorrhagic stroke, brain tumor, atypical migraine, Wernicke's encephalopathy, seizure, multiple sclerosis, meningitis, encephalitis, hypoglycemia, Guillain-Casillas, electrolytes disturbance, myasthenia gravis.... This is not meant to be an all-inclusive list EKG interpreted by me (3pts min.). @ -[I interpreted as above] X-rays interpreted by me (1pt min.). @ -[None done] CT interpreted by me (1pt min.). @ -[None done] U/S interpreted by me (1pt. min.). @ -[None done] What testing was considered but not performed or refused? (CT, X-rays, U/S, labs)? Why? @ -[None] What meds were considered but not given or refused? Why? @ -[None] Did you discuss the management of the patient with other professionals (professionals i.e. , PA, ENDOSCOPY SPECIALTY TECHNICIAN, lab, RT, psych nurse, social science teacher, tooling supervisor, teacher, consular officer, disability case manager)? Give summary @ -[No] Was smoking cessation discussed for >3mins.? @ -[No] Was critical care preformed (if so, how long)? @ -[No] Were there social determinants of health that impacted care today? How? (Homelessness, low income, unemployed, alcoholism, drug addiction, trans portation, low edu. Level, literacy, decrease access to med. care, mcc, rehab)? @ -[No] Was there de-escalation of care discussed even if they declined (Discuss DNR or withdrawal of care, Hospice)? DNR status @ -[No] What co-morbidities impacted this encounter? (DM, HTN, Smoking, COPD, CAD, Cance r, CVA, ARF, Chemo, Hep., AIDS, mental health diagnosis, sleep apnea, morbid obesity)? @ -[multiple sclerosis, hypertension Was patient admitted / discharged? Hospital course, mention meds given and route, prescriptions, significant lab abnormalities, going to OR and other pertinent info. @ -[This [facility] pending results of her studies (You Mace) Past Medical History Additional Past Medical History / Comment(s): MS, HTN History of Any Multi-Drug Resistant Organisms: None Reported Smoking Status: Never smoker Past Alcohol Use History: Occasional Past Drug Use History: Marijuana <You Mace - Last Filed: 09/01/24 17:19> Course Vital Signs 08/10/24 08/10/24 08/11/24 19:01 19:45 01:38 Temperature 98.2 F 98.4 F Pulse Rate 93 87 88 Respiratory 18 18 18 Rate Blood Pressure 160/112 156/96 164/103 O2 Sat by Pulse 100 97 Oximetry 08/11/24 08/11/24 08/11/24 05:00 08:25 12:04 Temperature 98 F Pulse Rate 95 105 H 91 Respiratory 18 20 16 Rate Blood Pressure 154/107 172/95 162/100 O2 Sat by Pulse 98 98 97 Oximetry 08/11/24 08/11/24 16:05 20:24 Temperature 98.3 F 98.8 F Pulse Rate 97 117 H Respiratory 16 17 Rate Blood Pressure 143/96 162/110 O2 Sat by Pulse 96 95 Oximetry Disposition <Ruthie Patel - Last Filed: 08/13/24 09:31> <You Mace - Last Filed: 09/01/24 17:19> Clinical Impression: Cerebrovascular accident (CVA) Disposition: ADMITTED IP TO THIS HOSP Condition: Stable
--- NOTE | 2024-08-10 20:18 | XR ---
EXAMINATION TYPE: XR chest 2V DATE OF EXAM: 08/10/2024 8:06 PM COMPARISON: None. CLINICAL INDICATION: Female, 53 years old with history of altered mental status; [facility] TECHNIQUE: XR chest 2V Frontal and lateral views of the chest. FINDINGS: Lungs/Pleura: There is no evidence of pleural effusion, focal consolidation, or pneumothorax. Pulmonary vascularity: Unremarkable. Heart/mediastinum: Cardiomediastinal silhouette is unremarkable. Musculoskeletal: No acute osseous pathology. Other findings: None IMPRESSION: No acute cardiopulmonary disease/process. [facility], , 08/10/2024 8:15 PM
--- NOTE | 2024-08-10 21:08 | CT ---
EXAMINATION TYPE: CT brain wo con DATE OF EXAM: 08/10/2024 9:01 PM COMPARISON: None. CLINICAL INDICATION: Female, 53 years old with history of Neuro deficit, acute, stroke suspected, Pt comes in with c/o facial numbness. Pt has a hx of MS. Pt states she feels really weak. Pt states she fell earlier today TECHNIQUE: Brain: Axial CT images of the brain were obtained with coronal and sagittal reformats created and rev iewed. Contrast used: None. Oral contrast used: None. CT DLP: 1106 mGycm, Automated exposure control for dose reduction was used. FINDINGS: Brain: Extra-axial spaces: No abnormal extra-axial fluid collections. Ventricular system: Within normal limits Cerebral parenchyma: No acute intraparenchymal hemorrhage or mass effect. Age-indeterminate small in farct in the left basal ganglia. Scattered hypoattenuating areas are seen within the white matter. Cerebellum: Unremarkable. Mass effect: No evidence of midline shift. Intracranial vasculature: unremarkable Soft tissues: Normal. Calvarium/osseous structures: No depressed skull fracture. Paranasal sinuses and mastoid air cells: Mild scattered paranasal sinus disease. Visualized orbits: Orbital contents are intact. IMPRESSION: 1. No intra-abdominal hemorrhage, midline shift or mass effect. 2. Age indeterminant small infarct in the left basal ganglia and patchy periventricular and subcorti alejandro white matter small vessel ischemic disease. [facility], , 08/10/2024 9:05 PM
[2024-08-10 21:16] LABS: Basophils # (A) 0.01 10*3/uL (0.00-0.10); Basophils % (A) 0.3 %; Eosinophils # (A) 0.03 10*3/uL (0.04-0.35); Eosinophils % (A) 0.9 %; HCT 35.7 % (37.2-46.3); HGB 12.2 g/dL (12.0-15.0); Lymphocytes # (A) 0.15 10*3/uL (0.90-5.00); Lymphocytes % (A) 4.4 %; MCH 31.8 pg (27.0-32.0); MCHC 34.2 g/dL (32.0-37.0); Mean Platelet Volume 10.2 fL (9.5-12.2); Monocytes # (A) 0.35 10*3/uL (0.20-1.00); Monocytes % (A) 10.2 %; Neutrophils # (A) 2.89 10*3/uL (1.80-7.70); Neutrophils % (A) 83.9 %; Platelet Count 217 10*3/uL (140-440); RBC 3.84 10*6/uL (4.10-5.20); RDW 13.6 % (11.5-14.5); WBC 3.44 10*3/uL (4.50-10.00)
--- NOTE | 2024-08-10 21:30 | CT ---
EXAMINATION TYPE: CT angio head neck DATE OF EXAM: 08/10/2024 9:02 PM COMPARISON: None. CLINICAL INDICATION: Female, 53 years old with history of Neuro deficit, acute, stroke suspected; PHH , Pt comes in with c/o facial numbness. Pt has a hx of MS. Pt states she feels really weak. Pt states she fell earlier today TECHNIQUE: Axially acquired helical CT angiogram of the head and neck was obtained with contrast. Axi al images are supplemented with 3D reconstructions and MIP images which were post-processed at an in dependent workstation. NASCET criteria used. Contrast used:65 mL of Isovue 370 with IV Contrast, Oral contrast used: None. CT DLP: 349.4 mGycm, Automated exposure control for dose reduction was used. FINDINGS: CTA HEAD: No evidence of acute intracranial hemorrhage, mass effect, or midline shift. The ventricles, sulci, a nd cisterns are unremarkable. Vertebral arteries: The vertebral arteries are patent. Vertebral artery dominance: Codominant Basilar artery: The basilar artery is intact. The basilar artery bifurcation is normal. Internal Carotid arteries: The cervical, petrous, cavernous and supraclinoid segments are patent. REMI: Patent with no evidence of aneurysm. ACOM: Present without evidence of aneurysm. MCA: Patent with no evidence of aneurysm. ADJUNCT FACULTY INSTRUCTOR: Patent with no evidence of aneurysm. PCOM: Hypoplastic bilaterally. Dural sinuses: Patent. CTA NECK: Right Carotid System: The common carotid artery and external carotid artery are patent. The carotid bifurcation demonstrate s no evidence of hemodynamically significant stenosis. Somewhat beaded appearance of the cervical rig ht carotid artery. The remaining portions of the internal carotid artery demonstrate normal size with out significant narrowing. Left Carotid System: The common carotid artery and external carotid artery are patent. The carotid bifurcation demonstrate s no evidence of hemodynamically significant stenosis. Somewhat beaded appearance of the cervical lef t carotid artery. The remaining portions of the internal carotid artery demonstrate normal size witho ut significant narrowing. Vertebral arteries are patent without evidence hemodynamically significant stenosis. There is a three-vessel aortic arch. The origins of the great vessels are patent. No evidence of hemo dynamically significant stenosis. Upper thorax: IMPRESSION: 1. No evidence of dissection of the cervical internal carotid arteries or vertebral arteries. 2. No any evidence of significant stenosis at the carotid bifurcations. 3. No evidence of intracranial high-grade stenosis or intracranial aneurysm. 4. Somewhat beaded appearance of the bilateral cervical carotid arteries, left greater than right, w hich is nonspecific but could be associated with fibromuscular dysplasia in the appropriate clinical setting. [facility], , 08/10/2024 9:28 PM
[2024-08-10 21:37] LABS: ALT 23 U/L (4-34); AST 18 U/L (14-36); African American GFR (CKD) >90 (>60 ml/min/1.73 sqM); Albumin 3.9 g/dL (3.5-5.0); Alkaline Phosphatase 78 U/L (38-126); Anion Gap 4 mmol/L; Blood Urea Nitrogen 15 mg/dL (7-17); Calcium 9.4 mg/dL (8.4-10.2); Carbon Dioxide 29 mmol/L (22-30); Chloride 103 mmol/L (98-107); Creatine Kinase 27 U/L (30-135); Glucose 96 mg/dL (74-99); INR 0.9 (<1.2); Non-African American GFR(CKD) >90 (>60 ml/min/1.73 sqM); Partial Thromboplastin Time 22.6 sec (22.0-30.0); Potassium 3.7 mmol/L (3.5-5.1); Prothrombin Time 9.7 sec (10.0-12.5); Sodium 136 mmol/L (137-145); Total Bilirubin 0.4 mg/dL (0.2-1.3); Total Protein 5.9 g/dL (6.3-8.2)
[2024-08-11] MEDS: ASPIRIN 325 MG TAB PO STA (01:01)
[2024-08-11] MEDS: SODIUM CHLORIDE 0.9% 1,000 ML IV SCH (03:17)
[2024-08-11] MEDS: CLOPIDOGREL 75 MG TAB PO SCH (08:24)
[2024-08-11] MEDS: FAMOTIDINE 20 MG TAB PO SCH (08:24)
--- NOTE | 2024-08-11 11:08 | P.HPIM ---
History of Present Illness Female came in with complaints of increasing weakness on the left side of the body and left side of the face along with the double vision going on for the about 2 weeks. Patient does have history of multiple sclerosis she believes manda t she may have MS exacerbation. Patient had CT of the head which showed left- sided basal ganglia infarct lesions as well as in the periventricular white matter. Patient did not any fever chills patient was taking Cipro for possible UTI although patient never had any symptoms of UTI patient did receive about 4 days of antibiotic patient denied any symptoms of urinary tract infection at this time will not require any antibiotics. REVIEW OF SYSTEMS: All other systems are negative except those mentioned in the HPI PHYSICAL EXAMINATION: GENERAL: The patient is alert and oriented x3, not in any acute distress. Well developed, well nourished. HEENT: Pupils are round and equally reacting to light. EOMI. No scleral icterus. No conjunctival pallor. Normocephalic, atraumatic. No pharyngeal erythema. No thyromegaly. CARDIOVASCULAR: S1 and S2 present. No murmurs, rubs, or gallops. PULMONARY: Chest is clear to auscultation, no wheezing or crackles. ABDOMEN: Soft, nontender, nondistended, normoactive bowel sounds. No palpable organomegaly. MUSCULOSKELETAL: No joint swelling or deformity. EXTREMITIES: No cyanosis, clubbing, or pedal edema. NEUROLOGICAL: Patient does have generalized weakness and bilateral upper and lower extremities does have tingling and numbness in the bilateral lower extremities and increased weakness in the left confusion about 4/5 in the left upper and left lower extremity along with facial droop SKIN: No rashes. Assessment and plan -Left-sided weakness differentials being multiple sclerosis exacerbation. Can be ischemic stroke neurology was consulted. Obtaining an MRI patient will be given 1 dose of steroids and elucidation of continuation of steroids per neurology. - Rule out UTI clinically will not require any antibiotics antibiotics will be discontinued - History of multiple sclerosis -Hypertension for which patient is on losartan which will be continued DVT prophylaxis: Lovenox Past Medical History Additional Past Medical History / Comment(s): MS, HTN History of Any Multi-Drug Resistant Organisms: None Reported Smoking Status: Never smoker Past Alcohol Use History: Occasional Past Drug Use History: Marijuana Medications and Allergies Home Medications Medication Instructions Recorded Confirmed Type Baclofen 10 mg PO HS 08/11/24 08/11/24 History Baclofen [Lioresal] 5 mg PO BID-W/MEALS 08/11/24 08/11/24 History Ciprofloxacin HCl [Cipro] 250 mg PO BID 08/11/24 08/11/24 History Fingolimod HCl [Gilenya] 0.5 mg PO Q3D 08/11/24 08/11/24 History Losartan Potassium [Cozaar] 100 mg PO HS 08/11/24 08/11/24 History Allergies Allergy/AdvReac Type Severity Reaction Status Date / Time naproxen [From Aleve] Allergy Rash/Hives Verified 08/11/24 08:28 tetracycline Allergy Rash/Hives Verified 08/11/24 08:28 Physical Exam Vitals: Vital Signs Temp Pulse Resp BP Pulse Ox 08/11/24 08:25 105 H 20 172/95 98 08/11/24 05:00 95 18 154/107 98 08/11/24 01:38 88 18 164/103 08/10/24 19:45 98.4 F 87 18 156/96 97 08/10/24 19:01 98.2 F 93 18 160/112 100 Intake and Output 08/10/24 08/11/24 08/11/24 22:59 06:59 14:59 Other: Weight 49.895 kg Results CBC & Chem 7: 08/10/24 21:05 08/10/24 21:05 Labs: Abnormal Lab Results - Last 24 Hours (Table) 08/10/24 08/10/24 08/10/24 Range/Units 21:05 21:05 21:05 WBC 3.44 L (4.50-10.00) 10*3/uL RBC 3.84 L (4.10-5.20) 10*6/uL Hct 35.7 L (37.2-46.3) % Lymphocytes # 0.15 L (0.90-5.00) 10*3/uL Eosinophils # 0.03 L (0.04-0.35) 10*3/uL PT 9.7 L (10.0-12.5) sec Sodium 136 L (137-145) mmol/L Creatine Kinase 27 L (30-135) U/L Total Protein 5.9 L (6.3-8.2) g/dL
[2024-08-11] MEDS: methylPREDNISolone SOD SUCCI 125 MG/2 ML VIAL IV STA (11:49)
[2024-08-11] MEDS: BACLOFEN 10 MG TAB PO SCH ×2 (11:49→23:27)
--- NOTE | 2024-08-11 12:35 | CA ---
Transthoracic Echo Report Name: Christen Armijo Age: 53 Gender: F : 1970 Exam Date: 08/11/2024 09:50 Exam Location: [facility] Ht (in): 62 Wt (lb): 110 Ordering Physician: Ruthie Patel MD Attending/Referring Phys: Lens Polisher Hamida Weir RDCS Procedure CPT: Indications: Thrombus Cardiac Hx: Technical Quality: Good Contrast 1: Agitated Saline Total Dose (mL): 10 Contrast 2: Total Dose (mL): MEASUREMENTS (Male / Female) Normal Values 2D ECHO LV Diastolic Diameter PLAX 4.5 cm 4.2 - 5.9 / 3.9 - 5.3 cm LV Systolic Diameter PLAX 3.1 cm IVS Diastolic Thickness 1.0 cm 0.6 - 1.0 / 0.6 - 0.9 cm LVPW Diastolic Thickness 1.0 cm 0.6 - 1.0 / 0.6 - 0.9 cm LV Relative Wall Thickness 0.5 LVOT Diameter 2.0 cm LV Diastolic Volume MOD BP 106.8 cm??? 67 - 155 / 56 - 104 cm??? LV Systolic Volume MOD BP 45.9 cm??? 22 - 58 / 19 - 49 cm??? LV Ejection Fraction MOD BP 57.0 % >= 55 % LV Cardiac Index MOD BP 3669.0 cm???/min???m??? LV Diastolic Volume MOD 4C 115.0 cm??? LV Systolic Volume MOD 4C 48.3 cm??? LV Ejection Fraction MOD 4C 58.0 % LV Cardiac Index MOD 4C 4021.2 cm???/min???m??? LV Diastolic Length 4C 7.9 cm LV Systolic Length 4C 6.0 cm LV Diastolic Volume MOD 2C 97.9 cm??? LV Systolic Volume MOD 2C 42.0 cm??? LV Ejection Fraction MOD 2C 57.1 % LV Cardiac Index MOD 2C 3370.1 cm???/min???m??? LV Diastolic Length 2C 7.8 cm LV Systolic Length 2C 6.3 cm LA Volume 63.2 cm??? 18 - 58 / 22 - 52 cm??? LA Volume Index 42.8 cm???/m??? 16 - 28 cm???/m??? DOPPLER AV Peak Velocity 162.3 cm/s AV Peak Gradient 10.5 mmHg AV Mean Velocity 109.3 cm/s AV Mean Gradient 5.3 mmHg AV Velocity Time Integral 27.9 cm LVOT Peak Velocity 119.2 cm/s LVOT Peak Gradient 5.7 mmHg LVOT Velocity Time Integral 21.2 cm LVOT Stroke Volume 66.7 cm??? LVOT Stroke Volume Index 45.0 ml/m??? LVOT Cardiac Index 4020.6 cm???/min???m??? AV Area Cont Eq vti 2.4 cm??? AV Area Cont Eq pk 2.3 cm??? MV Area PHT 8.1 cm??? Mitral E Point Velocity 60.4 cm/s Mitral A Point Velocity 72.9 cm/s Mitral E to A Ratio 0.8 MV Deceleration Time 94.0 ms PV Peak Velocity 63.2 cm/s PV Peak Gradient 1.6 mmHg FINDINGS Left Ventricle Left ventricular ejection fraction is estimated at 55-60 %. Mildly increased left ventricular diastolic volume. No obvious regional wall motion abnormalities.Normal left ventricular systolic function with no obvious regional wall motion abnormalities. Right Ventricle Normal right ventricular size and function. Unable to estimate the right ventricular systolic pressure. Right Atrium Normal right atrial size. Negative agitated saline bubble study for right to left shunt. Left Atrium Moderately increased left atrial volume. Mitral Valve Mitral valve thickened. No evidence for mitral valve prolapse. No mitral stenosis. Mild mitral regurgitation. Aortic Valve Trileaflet aortic valve. No aortic valve stenosis or regurgitation. Tricuspid Valve Structurally normal tricuspid valve. No tricuspid stenosis. Trace tricuspid regurgitation. Pulmonic Valve Pulmonic valve not well visualized. No pulmonic stenosis. No pulmonic regurgitation. Pericardium No pericardial effusion. Aorta Aortic annulus normal. Ascending aorta not well visualized. CONCLUSIONS 1. Normal left ventricular size and systolic function 2. Mild mitral regurgitation 3. No evidence of shunting by contrast bubble study Previewed by: Dr. Louis Howe MD (Electronically Signed) Final Date: 11 August 2024 12:34
--- NOTE | 2024-08-11 14:52 | P.CNNES ---
History of Present Illness Consult date: 08/11/24 Requesting physician: Ruthie Patel Reason for Consult: cva History of Present Illness: This is a 53-year-old woman with a history of multiple sclerosis with residual mild left hemiparesis and paresthesia presents to the emergency department because of her significant or worsening weakness over the left side as well as worsening numbness and tingling that occurred about a few weeks ago but worsened in the last 1 week. She follows up with Dr. Cheema her neurologist and she notified them about her symptoms and he is andrew for urinalysis and he felt was due to urinary tract infection so he placed her on ciprofloxacin and she has been on the medication for 2 to 3 days but she continues to have significant weakness so she wanted to be looked into at the hospital. She stated that she did not receive any steroids or any imaging by her outpatient neurologist. She has underlying history of multiple sclerosis for the last at least 30 years and she is on Gilenya every 3 days. She denies any history of stroke. She does have underlying history of hypertension. Also later she stated that she has been having double vision of both eyes. Some of the workup during this hospital visit consisted of: I reviewed the lab workup CT of the head is read as no hemorrhage, midline shift or mass effect. Age-indeterminate small infarct in the left basal ganglia and patchy periventricular and subcortical white matter small vessel ischemic disease. I personally reviewed the CT of the head and there is no acute or subacute stroke. Regarding the indeterminate left basal ganglia it seems subacute to chronic. As well as left ganglia with affect likely the right side and not her left-sided deficit. CT angiography of the head and neck is reported as somewhat beaded appearance of bilateral cervical carotid artery, left greater than right which is nonspecific but could be associated with fibromuscular dysplasia in the appropriate clinical setting. Otherwise there is no dissection or significant carotid bifurcation stenosis or aneurysm. Review of Systems As per HPI. Past Medical History Additional Past Medical History / Comment(s): MS, HTN History of Any Multi-Drug Resistant Organisms: None Reported Smoking Status: Never smoker Past Alcohol Use History: Occasional Past Drug Use History: Marijuana Medications and Allergies Home Medications Medication Instructions Recorded Confirmed Type Baclofen 10 mg PO HS 08/11/24 08/11/24 History Baclofen [Lioresal] 5 mg PO BID-W/MEALS 08/11/24 08/11/24 History Ciprofloxacin HCl [Cipro] 250 mg PO BID 08/11/24 08/11/24 History Fingolimod HCl [Gilenya] 0.5 mg PO Q3D 08/11/24 08/11/24 History Losartan Potassium [Cozaar] 100 mg PO HS 08/11/24 08/11/24 History Allergies Allergy/AdvReac Type Severity Reaction Status Date / Time naproxen [From Aleve] Allergy Rash/Hives Verified 08/11/24 08:28 tetracycline Allergy Rash/Hives Verified 08/11/24 08:28 Physical Examination - Vital Signs Vital Signs: Vital Signs Temp Pulse Resp BP Pulse Ox 08/11/24 12:04 98 F 91 16 162/100 97 08/11/24 08:25 105 H 20 172/95 98 08/11/24 05:00 95 18 154/107 98 08/11/24 01:38 88 18 164/103 08/10/24 19:45 98.4 F 87 18 156/96 97 08/10/24 19:01 98.2 F 93 18 160/112 100 Intake and Output 08/10/24 08/11/24 08/11/24 22:59 06:59 14:59 Other: Weight 49.895 kg GENERAL: The patient is lying in bed and is not in acute distress. NEUROLOGICAL: Higher mental function: The patient is awake, alert, oriented to self, place and time. Patient is following commands. No aphasia and no neglect. Cranial nerves: The pupils are round, equal and reactive to light and a ccommodation. Visual arteaga are full to confrontation throughout. Extraocular movement is intact no nystagmus is noted. Facial sensation is normal to touch throughout. The facial strength is normal throughout. Hearing is normal bilaterally to hand rub. Tongue is midline and moved [id number] without any difficulty. No dysarthria is noted. Shoulder shrug is normal bilaterally. Motor: The strength is left proximal extremity is 4+. Left hand acute care certified nursing assistant is 3 to 4. In lowers had hard time since was having spasm. Otherwise right upper is 5/5. Decrease tone in left upper extremity. Cerebellum: Normal finger to nose bilaterally. Sensation: Sensation is normal to touch throughout. Reflexes (right/left): Brisk reflex about 3 over the left upper. Otherwise rest is 2+. Plantars are mute bilaterally. Results - Laboratory Findings CBC and BMP: 08/10/24 21:05 08/10/24 21:05 Abnormal Lab Findings: Abnormal Labs 08/10/24 08/10/24 08/10/24 21:05 21:05 21:05 WBC 3.44 L RBC 3.84 L Hct 35.7 L Lymphocytes # 0.15 L Eosinophils # 0.03 L PT 9.7 L Sodium 136 L Creatine Kinase 27 L Total Protein 5.9 L Assessment and Plan Assessment: This is a 53-year-old woman with history of multiple sclerosis for at least 30 years who is on Gilenya who presents to the emergency department because of weakness that is worse than baseline over the left side as well as worsening paresthesia over the left side with diplopia over the past couple weeks but worse in the last 1 week. She was eval by her outpatient neurologist who felt it was due to acute UTI. Likely MS exacerbation. Left nonspecific basal ganglia on CAT scan would not explain her symptoms since likely that would cause right sided deficit. Acute or subacute stroke not seen on CAT scan History of multiple sclerosis for at least 30 years and the patient is on Gilenya with residual mild left hemiparesis and paresthesia Hypertension Plan: Changed the order of MRI from without to with and without Patient was given Solu-Medrol 125 IV once by the primary team because of his concern of MS exacerbation. I started the patient on 500 mg twice a day for 3 to 5 days for concern of MS exacerbation. Recommend GI and sugar control because of steroids. Patient was given aspirin 325 once in the ED. Patient is on Plavix 75 mg daily as well as Lipitor 80 mg nightly started by the physician for concern for stroke. From a neurologic perspective if the patient does not have any acute or subacute stroke then I will defer the use of antiplatelet and statin to the primary team Continue neurochecks I consulted PT OT Will defer the rest of the medical management department other specialist. Patient is on baclofen For DVT prophylaxis I started the patient on subcu heparin 5000's every 12 hours The plan discussed with the patient and her nurse Thank you for the consultation Time with Patient: Greater than 30
[2024-08-11] MEDS: methylPREDNISolone SOD SUCCIN 500 MG in SODIUM CHLORIDE 0.9% 100 ML IVPB SCH (15:45)
[2024-08-11] MEDS: ACETAMINOPHEN TAB 325 MG TAB PO PRN (18:18)
[2024-08-11] MEDS: LOSARTAN 50 MG TAB PO SCH (23:26)
[2024-08-11] MEDS: ATORVASTATIN 80 MG TAB PO SCH (23:27)
[2024-08-11] MEDS: HEPARIN SODIUM,PORCINE 5,000 UNIT/ML 1 ML VIAL SQ SCH (23:27)
[2024-08-12 10:19] LABS: Chol/HDL Ratio 2.39 Ratio; LDL Cholesterol,Calculated 136.4 mg/dL (0.0-131.0); VLDL Calculation 8.62 mg/dL (5.00-40.00)
[2024-08-12 11:03] VITALS: BMI 19.2
[2024-08-12] MEDS: LORazepam 1 MG/0.5 ML VIAL IV STA (11:32)
--- NOTE | 2024-08-12 12:47 | P.PN ---
Subjective Progress Note Date: 08/12/24 I am following-up with patient and she feels is doing better after IV Steroids. Denies any new neurological issues. Objective - Vital Signs Vital signs: Vital Signs Temp 98.3 F 08/12/24 07:35 Pulse 115 H 08/12/24 11:36 Resp 16 08/12/24 11:36 BP 177/82 08/12/24 11:36 Pulse Ox 98 08/12/24 11:36 FiO2 Intake & Output 08/11/24 08/12/24 08/12/24 18:59 06:59 18:59 Intake Total 118 Output Total 0 Balance 0 118 Weight 37.5 kg 47.627 kg Intake: Oral 118 Output: Urine 0 Other: Voiding Method Toilet Bedside Commode Bedside Commode External Catheter External Catheter # Voids 1 # Bowel Movements 1 - Exam GENERAL: The patient is lying in bed and is not in acute distress. NEUROLOGICAL: Higher mental function: The patient is awake, alert, oriented to self, place and time. Patient is following commands. No aphasia and no neglect. Cranial nerves: The pupils are round, equal and reactive to light and acco mmodation. Visual arteaga are full to confrontation throughout. Extraocular movement is intact no nystagmus is noted. Facial sensation is normal to touch throughout. The facial strength is normal throughout. Hearing is normal bilaterally to hand rub. Tongue is midline and moved [id number] without any difficulty. No dysarthria is noted. Shoulder shrug is normal bilaterally. Motor: The strength is left proximal extremity is 4+. Left hand fisheries management biologist is 3 to 4. In lowers had hard time since was having spasm. Otherwise right upper is 5/5. Decrease tone in left upper extremity. Cerebellum: Normal finger to nose bilaterally. Sensation: Sensation is normal to touch throughout. Reflexes (right/left): Brisk reflex about 3 over the left upper. Otherwise rest is 2+. Plantars are mute bilaterally. Some of the workup during this hospital visit consisted of: CT of the head is read as no hemorrhage, midline shift or mass effect. Age- indeterminate small infarct in the left basal ganglia and patchy periventricular and subcortical white matter small vessel ischemic disease. I personally reviewed the CT of the head and there is no acute or subacute stroke. Regarding the indeterminate left basal ganglia it seems subacute to chronic. As well as left ganglia with affect likely the right side and not her left-sided deficit. CT angiography of the head and neck is reported as somewhat beaded appearance of bilateral cervical carotid artery, left greater than right which is nonspecific but could be associated with fibromuscular dysplasia in the appropriate clinical setting. Otherwise there is no dissection or significant carotid bifurcation stenosis or aneurysm. 2D echo: Normal left ventricular size and systolic function. Mild mitral regurgitation. No evidence of shunting by contrast bubble study. - Labs CBC & Chem 7: 08/10/24 21:05 08/10/24 21:05 Labs: Abnormal Lab Results - Last 24 Hours (Table) 08/12/24 Range/Units 07:13 Cholesterol 249.00 H (0.00-200.00) mg/dL LDL Cholesterol, Calc 136.4 H (0.0-131.0) mg/dL HDL Cholesterol 104.00 H (40.00-60.00) mg/dL Assessment and Plan Assessment: This is a 53-year-old woman with history of multiple sclerosis for at least 30 years who is on Gilenya who presents to the emergency department because of weakness that is worse than baseline over the left side as well as worsening paresthesia over the left side with diplopia over the past couple weeks but worse in the last 1 week. She was eval by her outpatient neurologist who felt it was due to acute UTI. Likely MS exacerbation. Left nonspecific basal ganglia on CAT scan would not explain her symptoms since likely that would cause right sided deficit. Acute or subacute stroke not seen on CAT scan Dyslipidemai History of multiple sclerosis for at least 30 years and the patient is on Gilenya with residual mild left hemiparesis and paresthesia Hypertension Plan: Changed the order of MRI from without to with and without Patient was given Solu-Medrol 125 IV once by the primary team because of his concern of MS exacerbation. Continue IV Solu-Medrol 500 mg twice a day for 3 to 5 days for concern of MS exacerbation and today is day #2. Recommend GI and sugar control because of steroids. Patient was given aspirin 325 once in the ED. Patient is on Plavix 75 mg daily as well as Lipitor 80 mg nightly started by the physician for concern for stroke. From a neurologic perspective if the patient does not have any acute or subacute stroke then I will defer the use of antiplatelet and statin to the pr imary team Continue neurochecks PT and OT are consulted Will defer the rest of the medical management department other specialist. Patient is on baclofen For DVT prophylaxis Continue subcu heparin 5000's every 12 hours The plan discussed with the patient and primary team N.P. Time with Patient: Less than 30
[2024-08-12] MEDS: SODIUM CHLORIDE 0.9% 1,000 ML IV ONE (12:53)
--- NOTE | 2024-08-12 13:31 | MR ---
INDICATION: Patient age:Female; 53 years old; Reason for study: numbness and weakness face. MS flare up; [facility]. COMPARISON: CT brain 08/10/2024, CTA head and neck 08/10/2024, MRI brain/C-spine 07/27/2022, outside inst itution MRI brain 05/03/2016. TECHNIQUE: Multi planar, multi sequence imaging was performed through the brain. The patient was then given 5 cc of Gadobutrol intravenously and multi planar, T1 fat-saturation images were obtained. MS protocol utilized. FINDINGS: Motion degraded examination. The harkins-white junctions, ventricular system, basal cisterns appear unremarkable. Age-appropriate cer ebral parenchymal volume. Diffusion-weighted imaging shows no evidence of restricted diffusion to sug gest acute/subacute infarct. Intracranial arterial flow voids are maintained. Midline structures show no abnormality. Marginal increase in size of patchy and confluent regions of T2/FLAIR hyperintense signal within the supratentorial white matter. Examples include a left posterior frontal lobe plaque measuring up to 11 mm, previously 10 mm. A right posterior frontal lobe plaque measuring 10 mm, previously 8 mm. Right frontal lobe plaque measuring 6 mm, previously 7 mm. Additional right frontal lobe periventricular pl aque measuring up to 11 mm, previously 10 mm. Several of these plaques demonstrate a perpendicular or ientation to the ventricular system consistent with Farnsworth's finger projections. New region of T2/FLA IR hyperintense signal within the right lateral medulla oblongata from prior MR (series 601, image 8) . The susceptibility weighted images do not reveal any evidence for micro-hemorrhage. After administrat ion of gadolinium, no definitive abnormal enhancement is seen however there is significant motion deg radation. The bone marrow signal is within normal limits. The paranasal sinuses and globes are unremarkable. IMPRESSION: Motion degraded examination. 1. Mild progression of white matter changes from prior MR 07/27/2022 with new focal region within the right lateral medulla oblongata. No definitive enhancement to suggest active demyelination however th ere is significant motion degradation. 2. No evidence of intracranial mass, acute/subacute infarct, or abnormal enhancement. [facility], , 08/12/2024 1:29 PM
[2024-08-12] MEDS: MELATONIN 5 MG TABLET PO SCH (23:28)
--- NOTE | 2024-08-13 06:29 | P.PN ---
Subjective Progress Note Date: 08/12/24 Female came in with complaints of increasing weakness on the left side of the body and left side of the face along with the double vision going on for the about 2 weeks. Patient does have history of multiple sclerosis she believes that she may have MS exacerbation. Patient had CT of the head which showed left-sided basal ganglia infarct lesions as well as in the periventricular white matter. Patient did not any fever chills patient was taking Cipro for possible UTI although patient never had any symptoms of UTI patient did receive about 4 days of antibiotic patient denied any symptoms of urinary tract infection at this time will not require any antibiotics. 08/12/2024 Patient is seen in follow-up today being followed by neurology and scheduled to undergo MRI of the brain for further evaluation of MS exacerbation and possible CVA. CVA less likely and CT brain was negative for acute stroke. Patient is showing clinical improvements on the left status post steroids and is tolerating well. Will continue high-dose IV steroids and discuss further with neurology regarding possible discharge planning. Review of systems: Constitutional: No reports of fatigue, fever, or chills Cardiovascular: No reports of chest pain or palpitations Respiratory: No reports of shortness of breath or cough GI: No reports of nausea, vomiting, or diarrhea : No reports of dysuria or retention Neurovascular: reports of left-sided weakness and almost to baseline All medications have been reviewed PHYSICAL EXAMINATION: GENERAL: The patient is alert and oriented x3, not in any acute distress. Well d eveloped, built, elderly appearing HEENT: Pupils are round and equally reacting to light. EOMI. No scleral icterus. No conjunctival pallor. Normocephalic, atraumatic. No pharyngeal erythema. No thyromegaly. CARDIOVASCULAR: S1 and S2 muffled PULMONARY: Chest is clear to auscultation, no wheezing or crackles. ABDOMEN: Soft, nontender, nondistended, normoactive bowel sounds. No palpable organomegaly. MUSCULOSKELETAL: No joint swelling or deformity. EXTREMITIES: No cyanosis, clubbing, or pedal edema. NEUROLOGICAL: Patient does have generalized weakness and bilateral upper and lower extremities does have tingling and numbness in the bilateral lower extremities and increased weakness in the left about 4/5 in the left upper and left lower extremity, although improving SKIN: No rashes. Assessment: -Left-sided weakness likely secondary to MS exacerbation. Awaiting MRI of the brain today to rule out CVA. - Ruled out UTI clinically will not require any antibiotics antibiotics will be discontinued - History of multiple sclerosis -Hypertension for which patient is on losartan which will be continued DVT prophylaxis: Lovenox GI prophylaxis Full code Plan: Patient is continued on high-dose IV steroids showing clinical improvement in her MS and left-sided weakness is improving Patient scheduled undergo MRI of the brain this afternoon which is pending and awaiting further neurology recommendations Continue large dose IV steroids for the next few days and strongly recommend outpatient follow-up with primary neurologist Follow-up on repeat labs and replace electrolytes per protocol Also discharge planning in next 24 to 48 hours The impression and plan of care has been dictated by Clarissa Francis, Nurse Practitioner as directed. Dr. Vikash MD I have performed a history and examination and MDM of this patient, discussed the same with the dictator, and agree with the dictator's assessment and plan as written ,documented as a scribe. Based on total visit time, I have performed more than 50% of the visit. Objective - Vital Signs Vital signs: Vital Signs Temp 98.3 F 08/12/24 07:35 Pulse 97 08/12/24 07:35 Resp 18 08/12/24 07:35 BP 161/88 08/12/24 07:35 Pulse Ox 97 08/12/24 07:35 FiO2 Intake & Output 08/11/24 08/12/24 08/12/24 18:59 06:59 18:59 Intake Total 118 Output Total 0 Balance 0 118 Weight 37.5 kg Intake: Oral 118 Output: Urine 0 Other: Voiding Method Toilet Bedside Commode External Catheter - Labs CBC & Chem 7: 08/10/24 21:05 08/10/24 21:05
[2024-08-13 07:11] LABS: African American GFR (CKD) >90 (>60 ml/min/1.73 sqM); Anion Gap 12 mmol/L; Blood Urea Nitrogen 25 mg/dL (7-17); Calcium 9.9 mg/dL (8.4-10.2); Carbon Dioxide 23 mmol/L (22-30); Chloride 105 mmol/L (98-107); Glucose 124 mg/dL (74-99); Non-African American GFR(CKD) >90 (>60 ml/min/1.73 sqM); Potassium 4.3 mmol/L (3.5-5.1); Sodium 140 mmol/L (137-145)
[2024-08-13 11:22] LABS: Glucose,Whole Blood 117 mg/dL (70-110)
[2024-08-13] MEDS: FINGOLIMOD HCL 0.5 MG PO SCH (11:25)
--- NOTE | 2024-08-13 12:07 | P.PN ---
Subjective Progress Note Date: 08/13/24 I am following-up with patient and she feels her strength over the left side is better compared to initial presentation after IV steroids. Her significant other who is at bedside agrees. Denies any new neurological issues. Objective - Vital Signs Vital signs: Vital Signs Temp 98.2 F 08/13/24 07:55 Pulse 97 08/13/24 11:10 Resp 16 08/13/24 11:10 BP 154/102 08/13/24 11:10 Pulse Ox 97 08/13/24 11:10 FiO2 Intake & Output 08/12/24 08/13/24 08/13/24 18:59 06:59 18:59 Intake Total 354 20 120 Output Total 0 600 Balance 354 20 -480 Weight 47.627 kg 48.2 kg Intake: IV 20 Invasive Line 2 20 Oral 354 120 Output: Urine 0 600 Other: Voiding Method Bedside Commode Bedside Commode Bedside Commode External Catheter External Catheter External Catheter # Voids 2 # Bowel Movements 1 - Exam GENERAL: The patient is lying in bed and is not in acute distress. NEUROLOGICAL: Higher mental function: The patient is awake, alert, oriented to self, place and time. Patient is following commands. No aphasia and no neglect. Cranial nerves: The pupils are round, equal and reactive to light and accommodation. Visual arteaga are full to confrontation throughout. Extraocular movement is intact no nystagmus is noted. Facial sensation is normal to touch throughout. The facial strength is normal throughout. Hearing is normal bilaterally to hand rub. Tongue is midline and moved [id number] without any difficulty. No dysarthria is noted. Shoulder shrug is normal bilaterally. Motor: The strength is left proximal extremity is 4+ to 5-. 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 Has antigravity in lowers. Otherwise right upper is 5/5. Cerebellum: Normal finger to nose bilaterally. Sensation: Sensation is normal to touch throughout. Reflexes (right/left): Brisk reflex about 3 over the left upper. Otherwise rest is 2+. Plantars are mute bilaterally. Some of the workup during this hospital visit consisted of: CT of the head is read as no hemorrhage, midline shift or mass effect. Age- indeterminate small infarct in the left basal ganglia and patchy periventricular and subcortical white matter small vessel ischemic disease. I personally reviewed the CT of the head and there is no acute or subacute stroke. Regarding the indeterminate left basal ganglia it seems subacute to chronic. As well as left ganglia with affect likely the right side and not her left-sided deficit. CT angiography of the head and neck is reported as somewhat beaded appearance of bilateral cervical carotid artery, left greater than right which is nonspecific but could be associated with fibromuscular dysplasia in the appropriate clinical setting. Otherwise there is no dissection or significant carotid bifurcation stenosis or aneurysm. 2D echo: Normal left ventricular size and systolic function. Mild mitral regurgitation. No evidence of shunting by contrast bubble study. MRI of the brain with and without is reported as mild progression of white matter changes from prior 07/27/2022 with new focal region within the right lateral medulla oblongata. No definite enhancement suggest active demyelination however there is significant motion degeneration. No evidence of intracranial mass, acute/subacute infarct or abnormal enhancement. I personally reviewed the MRI and I agree there is no active lesion but again as stated by the reading radiologist there is motion artifact. There is no acute stroke that is apprecia ble. - Labs CBC & Chem 7: 08/10/24 21:05 08/13/24 05:28 Labs: Abnormal Lab Results - Last 24 Hours (Table) 08/13/24 08/13/24 Range/Units 05:28 11:20 BUN 25 H (7-17) mg/dL Creatinine 0.48 L (0.52-1.04) mg/dL Glucose 124 H (74-99) mg/dL POC Glucose (mg/dL) 117 H (70-110) mg/dL Assessment and Plan Assessment: This is a 53-year-old woman with history of multiple sclerosis for at least 30 years who is on Gilenya who presents to the emergency department because of weakness that is worse than baseline over the left side as well as worsening paresthesia over the left side with diplopia over the past couple weeks but worse in the last 1 week. She was eval by her outpatient neurologist who felt it was due to acute UTI. Likely MS exacerbation. Left nonspecific basal ganglia on CAT scan would not explain her symptoms since likely that would cause right sided deficit. Acute or subacute stroke not seen on CAT scan with MRI of the brain there is motion artifact but there is no active enhancement but there is motion artifact on the MRI and there appears to be a new lesion compared to her prior MRI that happened about a year ago over the right lateral medullary Oblongata---Clinically strength is improving with IV steroids Dyslipidemia History of multiple sclerosis for at least 30 years and the patient is on Gilenya with residual mild left hemiparesis and paresthesia Hypertension Plan: Changed the order of MRI from without to with and without Patient was given Solu-Medrol 125 IV once by the primary team because of his concern of MS exacerbation. Continue IV Solu-Medrol 500 mg twice a day for 3 to 5 days for concern of MS exacerbation and today is day #3. Recommend the patient to receive her last dose tomorrow A.M. then patient is clear from neurological perspective if no further new neurological issues. Patient was given aspirin 325 once in the ED. Patient is on Plavix 75 mg daily as well as Lipitor 80 mg nightly started by the physician for concern for stroke. From a neurologic perspective if the patient does not have any acute or subacute stroke then I will defer the use of antiplatelet and statin to the primary team Continue neurochecks PT and OT are consulted Will defer the rest of the medical management department other specialist. Patient is on baclofen For DVT prophylaxis Continue subcu heparin 5000's every 12 hours The plan is discussed with patient, her significant other who is at bedside and her nurse. Time with Patient: Less than 30
[2024-08-13] MEDS: amLODIPine 5 MG TAB PO SCH (12:16)
[2024-08-14 11:45] VITALS: BP 162/91; PULSE 94; RESP 18; TEMP 98.1
--- NOTE | 2024-08-14 16:11 | P.PN ---
Subjective Progress Note Date: 08/14/24 I am following-up with patient and she feels her strength over the left side is better compared to initial presentation after IV steroids. Her significant other who is at bedside agrees. Denies any new neurological issues. Objective - Vital Signs Vital signs: Vital Signs Temp 98.1 F 08/14/24 11:43 Pulse 94 08/14/24 11:43 Resp 18 08/14/24 11:43 BP 162/91 08/14/24 11:43 Pulse Ox 99 08/14/24 11:43 FiO2 Intake & Output 08/13/24 08/14/24 08/14/24 18:59 06:59 18:59 Intake Total 240 20 220 Output Total 1340 3 Balance -1100 17 220 Weight 47 kg Intake: IV 20 Invasive Line 2 20 Intake, IV Titration 100 Amount methylPREDNISolone SOD 100 SUCCIN 500 mg In Sodium Chloride 0.9% 100 ml @ 100 mls/hr IVPB Q12HR JARRET Rx#:[id number] Oral 240 120 Output: Urine 1340 Stool 3 Other: Voiding Method Bedside Commode Bedside Commode Toilet External Catheter External Catheter External Catheter # Voids 3 2 - Exam GENERAL: The patient is lying in bed and is not in acute distress. NEUROLOGICAL: Higher mental function: The patient is awake, alert, oriented to self, place and time. Patient is following commands. No aphasia and no neglect. Cranial nerves: The pupils are round, equal and reactive to light and accommodation. Visual arteaga are full to confrontation throughout. Extraocular movement is intact no nystagmus is noted. Facial sensation is normal to touch throughout. The facial strength is normal throughout. Hearing is normal bilaterally to hand rub. Tongue is midline and moved [id number] without any difficulty. No dysarthria is noted. Shoulder shrug is normal bilaterally. Motor: The strength is left proximal extremity is 4+ to 5-. 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 Has antigravity in lowers. Otherwise right upper is 5/5. Cerebellum: Normal finger to nose bilaterally. Sensation: Sensation is normal to touch throughout. Reflexes (right/left): Brisk reflex about 3 over the left upper. Otherwise rest is 2+. Plantars are mute bilaterally. Some of the workup during this hospital visit consisted of: CT of the head is read as no hemorrhage, midline shift or mass effect. Age- indeterminate small infarct in the left basal ganglia and patchy periventricular and subcortical white matter small vessel ischemic disease. I personally re viewed the CT of the head and there is no acute or subacute stroke. Regarding the indeterminate left basal ganglia it seems subacute to chronic. As well as left ganglia with affect likely the right side and not her left-sided deficit. CT angiography of the head and neck is reported as somewhat beaded appearance of bilateral cervical carotid artery, left greater than right which is nonspecific but could be associated with fibromuscular dysplasia in the appropriate clinical setting. Otherwise there is no dissection or significant carotid bifurcation stenosis or aneurysm. 2D echo: Normal left ventricular size and systolic function. Mild mitral regurgitation. No evidence of shunting by contrast bubble study. MRI of the brain with and without is reported as mild progression of white matter changes from prior 07/27/2022 with new focal region within the right lateral medulla oblongata. No definite enhancement suggest active demyelination however there is significant motion degeneration. No evidence of intracranial mass, acute/subacute infarct or abnormal enhancement. I personally reviewed the MRI and I agree there is no active lesion but again as stated by the reading radiologist there is motion artifact. There is no acute stroke that is appreciable. - Labs CBC & Chem 7: 08/10/24 21:05 08/13/24 05:28 Assessment and Plan Assessment: This is a 53-year-old woman with history of multiple sclerosis for at least 30 years who is on Gilenya who presents to the emergency department because of weak ness that is worse than baseline over the left side as well as worsening paresthesia over the left side with diplopia over the past couple weeks but worse in the last 1 week. She was eval by her outpatient neurologist who felt it was due to acute UTI. Likely MS exacerbation. Left nonspecific basal ganglia on CAT scan would not explain her symptoms since likely that would cause right sided deficit. Acute or subacute stroke not seen on CAT scan with MRI of the brain there is motion artifact but there is no active enhancement but there is motion artifact on the MRI and there appears to be a new lesion compared to her prior MRI that happened about a year ago over the right lateral medullary Oblongata---Clinically strength is improving with IV steroids Dyslipidemia History of multiple sclerosis for at least 30 years and the patient is on Gilenya with residual mild left hemiparesis and paresthesia Hypertension Plan: Changed the order of MRI from without to with and without Patient was given Solu-Medrol 125 IV once by the primary team because of his concern of MS exacerbation. Continue IV Solu-Medrol 500 mg twice a day for 3 to 5 days for concern of MS exacerbation. She has completed 3 days and will receive her last am. dose today. Patient was given aspirin 325 once in the ED. Patient is on Plavix 75 mg daily as well as Lipitor 80 mg nightly started by the physician for concern for stroke. From a neurologic perspective if the patient does not have any acute or subacute stroke then I will defer the use of antiplatelet and statin to the primary team Continue neurochecks PT and OT are consulted Will defer the rest of the medical management department other specialist. Patient is on baclofen For DVT prophylaxis Continue subcu heparin 5000's every 12 hours Upon discharge, recommend the patient to follow-up with her outpatient neurologist, Dr. Cheema within 2-3 weeks. The plan is discussed with patient, her significant other who is at bedside and her nurse. There is no further neurological work-up. Time with Patient: Less than 30
--- NOTE | 2024-08-15 20:34 | P.DS ---
Providers Date of admission: 08/11/24 01:07 Attending physician: Steve Gómez MD Consults: 08/11/24 01:05 Consult Physician Urgent Consulting Provider: Jaylyn Jones Consult Reason/Comments: CVA Do you want consulting provider notified?: Yes, Notify in am Primary care physician: Stated None Hospital Course: Final Diagnosis - Left-sided weakness likely secondary to MS exacerbation. - Ruled out UTI clinically will not require any antibiotics antibiotics will be discontinued - History of multiple sclerosis - Hypertension for which patient is on losartan which will be continued Discharge Disposition Stable for discharge home. Patient does not want the lipitor and plavix not indicated as there is no evidence of acute stroke. Patient to follow up with Dr. Cheema next week. Hospital Course This is a 53 year old female who came in with complaints of increasing weakness on the left side of the body and left side of the face along with the double vision going on for the about 2 weeks. Patient does have history of multiple sclerosis she believes that she may have MS exacerbation. Maintained on Gilenya. Patient had CT of the head which showed left-sided basal ganglia infarct lesions as well as in the periventricular white matter. Patient did not any fever chills patient was taking Cipro for possible UTI although patient never had any symptoms of UTI patient did receive about 4 days of antibiotic patient denied any symptoms of urinary tract infection at this time will not require any antibiotics. Patient was admitted with neurology consult for MS exacerbation. Was started on plavix and lipitor in the ER for stroke however brain MRI does not reveal acute stroke and patients left sided symptoms have improved. Brain MRI reveals mild progression of white matter changes from prior MR july 27 2022 with new focal region within the right lateral medulla oblongata. No definitive enchancement to suggest active demyelination howevere there is significant motion degradation. No evidence of intracranial mass, acute/subacute infarct, or abnormal enhancement. Echocardiogram reveals an EF 55-60%, mild MR, no evidence of shunting by contrast bubble study. Patient has completed 3 doses of IV methylprednisolone. Has an appt with her neurologist Dr Cheema next week. She will be discharged home. Please see medication reconciliation for a list of current medications. Thank you for allowing us to participate in the care of this patient. The impression and plan of care has been dictated by Ching Livingston, Nurse Practitioner as directed. Dr. Vikash MD I have performed a history and physical examination and medical decision making of this patient, discussed the same with the dictator, and agree with the dictators assessment and plan as written, documented as a scribe. Based on total visit time, I have performed more than 50% of this visit. Patient Condition at Discharge: Stable Plan - Discharge Summary Discharge Rx Participant: Yes New Discharge Prescriptions: New amLODIPine [Norvasc] 5 mg PO DAILY #30 tab Atorvastatin [Lipitor] 80 mg PO HS #30 tab Continue Baclofen [Lioresal] 5 mg PO BID-W/MEALS Baclofen 10 mg PO HS Fingolimod HCl [Gilenya] 0.5 mg PO Q3D Losartan Potassium [Cozaar] 100 mg PO HS Discontinued Ciprofloxacin HCl [Cipro] 250 mg PO BID Discharge Medication List Baclofen 10 mg PO HS 08/11/24 [History] Baclofen [Lioresal] 5 mg PO BID-W/MEALS 08/11/24 [History] Fingolimod HCl [Gilenya] 0.5 mg PO Q3D 08/11/24 [History] Losartan Potassium [Cozaar] 100 mg PO HS 08/11/24 [History] Atorvastatin [Lipitor] 80 mg PO HS #30 tab 08/14/24 [Rx] amLODIPine [Norvasc] 5 mg PO DAILY #30 tab 08/14/24 [Rx] Follow up Appointment(s)/Referral(s): [facility] [NON-STAFF] - 1 Week (Contact a primary care office to become established with a provider. ) None,Stated [Primary Care Provider] - 1-2 days Sergio Cheema DO [STAFF PHYSICIAN] - 1 Week Patient Instructions/Handouts: Multiple Sclerosis (DC) Discharge/Stand Alone Forms: Area PCPs Discharge Disposition: HOME SELF-CARE
== END 2024-08-14 13:55 | disposition home or self-care (01) | DRG 60 ==
LOC: EC 18:57 → 3SCARD 08-11 01:07
PROVIDERS: ADMIT Internal Medicine; ATTEND Internal Medicine
DX: G35 Multiple sclerosis (principal); E78.5 Hyperlipidemia, unspecified; G81.94 Hemiplegia, unspecified affecting left nondominant side; I10 Essential (primary) hypertension; I34.0 Nonrheumatic mitral (valve) insufficiency; R20.2 Paresthesia of skin; Z86.73 Personal history of transient ischemic attack (TIA), and cerebral infarction without residual deficits; Z79.899 Other long term (current) drug therapy
CPT/HCPCS: 36415; 70450; 70496; 70498; 70553; 71046; 80048; 80053; 80061; 82550; 84484; 85025; 85610; 85730; 93005; 93306; 96361; 96365; 96375; 99285